=== PATIENT | female | born 1950 | race Caucasian/White ===

== ENCOUNTER → 2016-05-07 | Outpatient (CLI) | payer MEDICAID ==
--- NOTE | 2016-05-10 00:08 | FL ---
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 Episodes are becoming more frequent. Total fluoroscopy time: 2.3 minutes. TECHNIQUE AND FINDINGS: The risks and benefits of the procedure were discussed with the patient who gave verbal consent. Miguel lance sterile technique was utilized; the ostium for right Stensen's duct was located and after initia l probing and dilatation, a 27-gauge sialocatheter was introduced into the opening and the catheter w as secured by the patient's teeth. Retrograde instillation of a total of 2 mL Omnipaque 180 contrast material demonstrated a patent Sten sen's duct with opacification of the intraglandular branches. Stensen's duct itself is normal caliber but the distal aspect of some of the supplying branches are moderately dilated. No filling defect is identified. Patient was given some lemon to help stimulate salivation and a post image demonstrated residual cont rast within ectatic intraglandular ducts. Stensen's duct was clear. IMPRESSION: 1. Patent and normal caliber Stensen's duct. 2. The distal aspects of feeding intraglandular branches are ectatic and moderately to markedly dilat ed. 3. No filling defect identified. 4. Limited secretion of saliva with the post procedure image showing residual contrast throughout ect atic intraglandular ducts.
== END | disposition home or self-care (01) ==
LOC: RADFLWHC 13:32
PROVIDERS: ATTEND Otolaryngology
DX: K11.8 Other diseases of salivary glands (principal)
CPT/HCPCS: 70390; Q9965

== ENCOUNTER → 2016-05-12 | Outpatient (CLI) | payer MEDICAID ==
--- NOTE | 2016-05-14 08:13 | MM ---
Reason for exam: screening (asymptomatic). Last mammogram was performed 1 year and 2 months ago. History: Patient is postmenopausal. Family history of breast cancer in maternal cousin and breast cancer in mother. Benign ultrasound-guided core biopsy of the right breast, November 08, 2001. Benign ultrasound-guided core biopsy of the right breast, November 08, 2001. 2 core biopsies of the right breast. Excisional biopsy of the left breast. Physical Findings: A clinical breast exam by your physician is recommended on an annual basis and results should be correlated with mammographic findings. MG Screening Mammo w CAD Bilateral CC and MLO view(s) were taken. Prior study comparison: March 14, 2015, bilateral MG screening mammo w CAD. February 05, 2014, bilateral MG screening mammo w CAD. December 20, 2012, bilateral digital screening mammo w/CAD. The breast tissue is heterogeneously dense. This may lower the sensitivity of mammography. There is chronic nodularity in the right breast. No significant changes when compared with prior studies. ASSESSMENT: Negative, BI-RAD 1 RECOMMENDATION: Routine screening mammogram of both breasts in 1 year.
== END | disposition home or self-care (01) ==
LOC: RADMAMWWP 16:11
PROVIDERS: ATTEND Internal Medicine
DX: Z12.31 Encounter for screening mammogram for malignant neoplasm of breast (principal)

== ENCOUNTER → 2016-06-15 | Outpatient (CLI) | payer MEDICAID ==
--- NOTE | 2016-06-15 13:30 | MR ---
EXAMINATION TYPE: MR knee LT wo con DATE OF EXAM: 06/15/2016 1:20 PM COMPARISON: Left knee x-ray June 01, 2016 HISTORY: Left knee pain per order. Pain and swelling for 4 months per patient. TECHNIQUE: Multiplanar, multisequence images of the knee is performed without IV contrast. FINDINGS: MEDIAL MENISCUS: Some increased signal is seen in posterior horn of medial meniscus best on coronal i mage 17, does not distinctly extend to articular surface. Some medial extrusion of medial meniscus as noted on coronal images. LATERAL MENISCUS: Anterior and posterior horns are intact without tear. CRUCIATE LIGAMENTS: The anterior and posterior cruciate ligaments are intact. Increased signal anteri or cruciate ligament is noted. COLLATERAL LIGAMENTS: The medial collateral ligament and lateral collateral ligament complex are inta ct. Some medial bulging on medial collateral ligament is present. Some surrounding fluid involving de ep fibers inferiorly is noted at proximal tibial level. EXTENSOR MECHANISM: Visualized quadriceps and patellar tendons are intact. EFFUSION: There is small to moderate size suprapatellar joint effusion extending superiorly and later ally. POPLITEAL CYST: There is moderate size multiseptated popliteal/sales cyst measuring 5.1 cm on long ax is on sagittal image 23. TRICOMPARTMENT SPACES: Advanced joint space loss and moderate spurring patellofemoral compartment is seen. There is more moderate joint space loss medial tibiofemoral compartment. Mild spurring lateral medial tibiofemoral compartments is noted. CARTILAGE: There is full-thickness chondromalacia patella over the posterior patellar pole. Some joe ctive cystic change along posterior patellar pole is evident. There is marked cartilaginous loss also medial tibiofemoral compartment with full-thickness loss over distal medial femoral condyle noted. S ome heterogeneous edema involving the medial tibial plateau is seen best on coronal image 15. BONE MARROW SIGNAL: No focal abnormal marrow signal is appreciated. OTHER: No additional significant abnormality is appreciated. IMPRESSION: 1. Baseline of moderate to advanced tricompartment degenerative changes with advanced patellofemoral compartment findings noted including severe full-thickness chondromalacia patella. Moderate to advanc ed findings medial tibiofemoral compartment are noted. Further details as noted above. 2. Intrasubstance tear in medial meniscus centered posterior horn. 3. Myxoid degeneration ACL. 4. Mild distal MCL sprain injury. 5. Small to moderate suprapatellar joint effusion. 6. Moderate size multiseptated popliteal cyst.
== END | disposition home or self-care (01) ==
LOC: RADMRIMAIN 12:42
PROVIDERS: ATTEND Orthopaedic Surgery
DX: M17.12 Unilateral primary osteoarthritis, left knee (principal); M22.42 Chondromalacia patellae, left knee; S83.242A Other tear of medial meniscus, current injury, left knee, initial encounter; S83.512A Sprain of anterior cruciate ligament of left knee, initial encounter; M71.22 Synovial cyst of popliteal space [Baker], left knee

== ENCOUNTER → 2016-07-07 | Outpatient (CLI) | payer MEDICAID ==
[2016-07-07 10:48] LABS: Basophils % (A) 0 %; CH 26.3; CHCM 32.1; Eosinophils % (A) 0 %; HCT 37.5 % (34.0-46.0); HGB 12.3 gm/dL (11.4-16.0); Luc # (Auto) 0.12; Luc % (Auto) 3; Lymphocytes # (A) 1.2 k/uL (1.0-4.8); Lymphocytes % (A) 32 %; MCHC 32.7 g/dL (31.0-37.0); MCV 82.6 fL (80.0-100.0); Mean Platelet Volume 7.3; Monocytes # (A) 0.3 k/uL (0-1.0); Monocytes % (A) 7 %; Neutrophils # (A) 2.2 k/uL (1.3-7.7); Neutrophils % (A) 58 %; RBC 4.55 m/uL (3.80-5.40); RDW 13.5 % (11.5-15.5); WBC 3.8 k/uL (3.8-10.6)
== END | disposition home or self-care (01) ==
LOC: LABPAT 10:08
PROVIDERS: ATTEND Orthopaedic Surgery
DX: Z01.812 Encounter for preprocedural laboratory examination (principal)
CPT/HCPCS: 80051; 85025

== ENCOUNTER 2016-07-22 10:19 | Day surgery (SDC) | payer MEDICAID ==
[2016-07-20 14:11] VITALS: BMI 26.6
--- NOTE | 2016-07-21 16:43 | HP ---
DATE OF ADMISSION: 07/22/2016 Neva Zambrano is a 66-year-old patient seen with progressive left knee pain. After options regarding treatment were discussed with her, she elected to proceed with left knee arthroplasty. Consent was obtained. PAST MEDICAL HISTORY: Depression, hypertension. PAST SURGICAL HISTORY: Right knee arthroscopy. DAILY MEDICATIONS: 1. Amlodipine. 2. Advil. 3. Fenofibrate. ALLERGIES: ASPIRIN. SOCIAL HISTORY: Patient denies tobacco use. PHYSICAL EVALUATION OF LEFT KNEE: Range of motion is zero to 120 degrees. Mild effusion. Tenderness along the medial and lateral joint lines. Positive medial Garcia's. Positive lateral Garcia's. Ligaments are stable. Hip rotation without pain. There is crepitus along the patellofemoral compartment with range of motion. Distal neurovascular exam is intact. Left knee radiographs revealed moderate medial and patellofemoral compartment osteoarthritis. MRI of the left knee revealed medial meniscal tear and osteoarthritis. IMPRESSION: Internal derangement of the left knee with medial meniscal tear. PLAN: Left knee arthroscopy with partial meniscectomy and debridement.
[~2016-07-22 10:19] MED LIST: DEXAMETHASONE SOD PHOSPHATE 10 MG/ML 1 ML VIAL IV ONE; MIDAZOLAM 2 MG/2 ML VIAL IV PRN; ONDANSETRON 4 MG/2 ML VIAL IVP ONE; ceFAZolin 1,000 MG in DEXTROSE/WATER 1 50ML.BAG IV ONE
[2016-07-22] MEDS: LACTATED RINGERS 1,000 ML IV SCH ×2 (11:23→12:03)
[2016-07-22] MEDS ORDERED: LIDOCAINE 1% 20 ML VIAL (10MG/ML) FOR IV START INTRADERMA ONE (11:24)
[2016-07-22] MEDS ORDERED: SCOPOLAMINE 1.5MG/72HR PATCH TRANSDERM ONE (11:47)
[2016-07-22] MEDS ORDERED: SUCCINYLCHOLINE CHLORIDE 100 MG/5 ML SYR IV ONE (12:04)
[2016-07-22] MEDS ORDERED: LIDOCAINE 1% INJ 10MG/ML (20 ML MDV) ONE (12:04)
[2016-07-22] MEDS ORDERED: fentaNYL (PF) 50 MCG/ML 2 ML AMP ONE (12:04)
[2016-07-22] MEDS ORDERED: PROPOFOL 10 MG/ML 20 ML VIAL IV ONE (12:04)
[2016-07-22] MEDS ORDERED: BUPIVACAIN-EPI 0.25%-1:200,000 30 ML VIAL INTRAARTIC ONE (12:12)
[2016-07-22 13:00] VITALS: TEMP 97.2
--- NOTE | 2016-07-22 13:02 | P.OP ---
Date of Procedure: 07/22/16 Preoperative Diagnosis: Internal derangement left knee Postoperative Diagnosis: 1. Tear medial and lateral meniscus left knee 2. Grade 4 chondromalacia medial femoral condyle left knee 3. Grade 2 chondromalacia patella left knee 4. Reactive synovitis medial and suprapatellar compartments left knee Procedure(s) Performed: 1. Arthroscopic partial medial and lateral meniscectomy left knee 2. Arthroscopic chondroplasty medial femoral condyle left knee 3. Arthroscopic chondroplasty patella left knee 4. Arthroscopic partial synovectomy medial and suprapatellar compartments left knee Anesthesia: CAMDENA, local Surgeon: Noé Ruelas Estimated Blood Loss (ml): 10 Pathology: none sent Condition: stable Disposition: PACU Indications for Procedure: 66-year-old patient seen with progressive left knee pain. After having options regarding treatment discussed, she elected to proceed with left knee arthroscopy. Operative Findings: See description of procedure Description of Procedure: Patient was taken to the operative suite. Patient underwent a general anesthetic by the department of anesthesia. Patient was given preoperative antibiotics. The left lower extremity was placed in a well-padded arthroscopic leg wright. The left leg was prepped and draped in the normal sterile orthopedic fashion. A lateral parapatellar and suprapatellar incision was made. Trochars were inserted. Arthroscopy was initiated. Suprapatellar pouch revealed thick reactive synovitis. The patellofemoral joint appeared to articulate congruently. There was grade 2 chondromalacia with some osteochondral tears present. The scope was guided into the medial gutter. No loose body or plica were identified The scope was then guided into the medial compartment. A medial parapatellar incision was made. Trocar inserted followed by probe. There was a radial tear involving the posterior horn of the medial meniscus. There were grade 3 and 4 chondromalacia changes of the medial femoral condyle with some osteochondral tears present. Thick reactive synovitis was noted anteriorly. A partial medial meniscectomy was performed on a stable tissue. A chondroplasty of the medial femoral condyle and partial synovectomy were performed. The residual meniscus was probed and found to be stable. There was grade 4 chondromalacia of the medial femoral condyle with some bony exposure present. Scope and probe were then guided into the intercondylar notch. Cruciates were identified, probed and found to be stable. The scope and probe were then guided into lateral compartment. There was a radial tear mid body lateral meniscus. Grade 1 chondromalacia changes lateral tibial plateau. No loose bodies, no synovitis. A partial lateral meniscectomy performed down to stable tissue. The residual meniscus was stable. The scope was in guided back into the suprapatellar compartment. A motorized shaver was introduced into the suprapatellar compartment. I debrided some piecemeal fragments of meniscus. I performed a chondroplasty of the patella. I performed a partial synovectomy. The shaver was removed. I took one more look around the entire knee, no residual debris. Instruments were now removed from the joint. The joint was infiltrated with .25% Marcaine. Steri-Strips were applied to the portal sites. Sterile dressings were applied. The patient was placed into a TITO hose. No tourniquet was utilized. The patient was awakened, transferred to a bed and taken to recovery stable satisfactory condition.
[2016-07-22] MEDS ORDERED: KETOROLAC 30 MG/ML 1 ML VIAL IVP ONE (13:27)
[2016-07-22] MEDS: HYDROmorphone 1 MG/ML 1 ML SYRINGE IVP PRN ×2 (13:33→13:39)
[2016-07-22 15:01] VITALS: BP 127/74; PULSE 76; RESP 20
== END 2016-07-22 15:13 | disposition home or self-care (01) ==
LOC: OR 10:19
PROVIDERS: ATTEND Orthopaedic Surgery
DX: S83.282A Other tear of lateral meniscus, current injury, left knee, initial encounter (principal); S83.242A Other tear of medial meniscus, current injury, left knee, initial encounter; X58.XXXA Exposure to other specified factors, initial encounter; M17.12 Unilateral primary osteoarthritis, left knee; M22.42 Chondromalacia patellae, left knee; M65.9 Synovitis and tenosynovitis, unspecified; E78.2 Mixed hyperlipidemia; I10 Essential (primary) hypertension; Z79.1 Long term (current) use of non-steroidal anti-inflammatories (NSAID); Z79.899 Other long term (current) drug therapy; Z88.6 Allergy status to analgesic agent; Z82.49 Family history of ischemic heart disease and other diseases of the circulatory system
CPT/HCPCS: 29880; J2250; J1100; J2405; J2001; J3010; J1885; J1170; J0690; J0330; J2704

== ENCOUNTER → 2017-06-03 | Outpatient (CLI) | payer MEDICARE, OTHER ==
[2017-06-03 12:11] LABS: Basophils % (A) 0 %; Eosinophils % (A) 1 %; HCT 38.1 % (34.0-46.0); HGB 12.1 gm/dL (11.4-16.0); Lymphocytes # (A) 1.5 k/uL (1.0-4.8); Lymphocytes % (A) 35 %; MCH 26.8 pg (25.0-35.0); MCHC 31.7 g/dL (31.0-37.0); MCV 84.8 fL (80.0-100.0); Mean Platelet Volume 7.3; Monocytes # (A) 0.2 k/uL (0-1.0); Monocytes % (A) 5 %; Neutrophils # (A) 2.4 k/uL (1.3-7.7); Neutrophils % (A) 57 %; Platelet Count 217 k/uL (150-450); RDW 13.5 % (11.5-15.5); WBC 4.3 k/uL (3.8-10.6)
[2017-06-03 12:15] LABS: INR 1.1 (<1.2); Partial Thromboplastin Time 24.9 sec (22.0-30.0); Prothrombin Time 10.7 sec (9.0-12.0)
[2017-06-03 12:32] LABS: ALT 63 U/L (9-52); AST 46 U/L (14-36); Albumin 4.3 g/dL (3.5-5.0); Alkaline Phosphatase 70 U/L (38-126); Anion Gap 10 mmol/L; Blood Urea Nitrogen 21 mg/dL (7-17); Calcium 9.5 mg/dL (8.4-10.2); Carbon Dioxide 28 mmol/L (22-30); Chloride 105 mmol/L (98-107); Cholesterol 228 mg/dL (<200); Glucose 107 mg/dL (74-99); HDL Cholesterol 39 mg/dL (40-60); LDL Cholesterol,Calculated 163 mg/dL (0-99); Potassium 3.9 mmol/L (3.5-5.1); Sodium 143 mmol/L (137-145); Total Bilirubin 0.3 mg/dL (0.2-1.3); Total Protein 6.7 g/dL (6.3-8.2); Triglycerides 131 mg/dL (<150)
[2017-06-03 21:17] LABS: Cardiolipin Ab IgG Interp NEGATIVE (NEGATIVE); Cardiolipin IgA Antibody <0.5 U/mL; Immunoglobulin E 3.21 IU/mL (0.00-114.00)
[2017-06-03 21:21] LABS: Cardiolipin Ab IgM Interp NEGATIVE (NEGATIVE); Cardiolipin IgM Antibody 2.2 U/mL
[2017-06-06 11:51] LABS: APTT 43 Sec(s) (<43); Dilute Russell Viper Venom 41 Sec(s) (<44)
[2017-06-06 14:16] LABS: Anti-Thrombin III Antigen 102 % (80 - 120)
[2017-06-07 11:33] LABS: Protein C (Activity) 136 % (71-138)
[2017-06-07 11:57] LABS: Free Protein S Antigen 95 % (50 - 147)
== END | disposition home or self-care (01) ==
LOC: LABWHC1 11:33
PROVIDERS: ATTEND Internal Medicine
DX: D68.69 Other thrombophilia (principal); I63.9 Cerebral infarction, unspecified
CPT/HCPCS: 36415; 80053; 80061; 81240; 81241; 82784; 82785; 83090; 85025; 85301; 85303; 85306; 85610; 85613; 85730; 86141; 86147

== ENCOUNTER 2017-06-22 07:58 | Day surgery (SDC) | payer MEDICARE, OTHER ==
[2017-06-21 08:41] VITALS: BMI 26.4
[2017-06-22] MEDS ORDERED: SODIUM CHLORIDE 0.9% 500 ML IV ONE (08:18)
[2017-06-22 08:21] VITALS: TEMP 98.1
[2017-06-22] MEDS ORDERED: fentaNYL (PF) 50 MCG/ML 2 ML AMP ONE (08:38)
[2017-06-22] MEDS ORDERED: MIDAZOLAM 2 MG/2 ML VIAL ONE (08:39)
[2017-06-22] MEDS: BENZOCAINE SPRAY 1 CAN MUCOUS MEM ONE ×2 (08:55→09:07)
[2017-06-22] MEDS ORDERED: fentaNYL (PF) 50 MCG/ML 2 ML AMP IVP ONE (09:02)
[2017-06-22] MEDS: MIDAZOLAM 2 MG/2 ML VIAL IVP ONE ×2 (09:02→09:07)
[2017-06-22] MEDS ORDERED: SODIUM CHLORIDE 0.9% 1,000 ML IV SCH (09:30)
--- NOTE | 2017-06-22 09:44 | ECHOT ---
TRANSESOPHAGEAL ECHOCARDIOGRAM INDICATION: Cerebrovascular accident. PROCEDURE NOTE: After obtaining informed consent, transesophageal echocardiogram was performed in left lateral position using an Omniplane probe. Local and IV sedation were done using Xylocaine spray, 2 mg of Versed and 25 mg of fentanyl. The patient tolerated the procedure well without any obvious immediate complications. Patient received moderate conscious sedation. Total sedation time was 15 minutes. FINDINGS: 1. There was no intracardiac thrombus within the left atrium, right atrium, right ventricle, left ventricle or left atrial appendage. 2. Left ventricle has normal size and systolic function. 3. Mitral valve is anatomically normal. There is mild mitral regurgitation noted. 4. Aortic valve is free of stenosis or regurgitation. 5. Tricuspid valve appears normal. 6. There is no evidence of [id number] shunt by color-flow Doppler or [id number]-ns-[id number] shunt across the interatrial septum. 7. Aorta does not show aneurysm or significant atherosclerosis. CONCLUSION: No intracardiac source of thromboembolic cerebrovascular accident. MMODL / IJN: [id number] /
[2017-06-22 09:50] VITALS: RESP 16
[2017-06-22 10:07] VITALS: PULSE 76
[2017-06-22 11:07] VITALS: BP 142/72
== END 2017-06-22 11:07 | disposition home or self-care (01) ==
LOC: CATHCVL 07:58
PROVIDERS: ATTEND Internal Medicine Cardiovascular Disease
DX: I63.9 Cerebral infarction, unspecified (principal); I34.0 Nonrheumatic mitral (valve) insufficiency; I10 Essential (primary) hypertension; G45.8 Other transient cerebral ischemic attacks and related syndromes; E78.2 Mixed hyperlipidemia; Z88.6 Allergy status to analgesic agent; Z88.8 Allergy status to other drugs, medicaments and biological substances; Z87.891 Personal history of nicotine dependence; Z82.49 Family history of ischemic heart disease and other diseases of the circulatory system; Z79.02 Long term (current) use of antithrombotics/antiplatelets; Z79.82 Long term (current) use of aspirin; Z79.899 Other long term (current) drug therapy
CPT/HCPCS: 93312; J2250; J3010; 93320; 93325

== ENCOUNTER → 2017-09-02 | Outpatient (CLI) | payer MEDICARE, OTHER ==
[2017-09-02 07:43] LABS: ALT 46 U/L (9-52); AST 30 U/L (14-36); Cholesterol 124 mg/dL (<200); HDL Cholesterol 37 mg/dL (40-60); LDL Cholesterol,Calculated 52 mg/dL (0-99); Triglycerides 173 mg/dL (<150)
== END | disposition home or self-care (01) ==
LOC: LABWHC1 06:55
PROVIDERS: ATTEND Internal Medicine
DX: E78.5 Hyperlipidemia, unspecified (principal)
CPT/HCPCS: 36415; 80061; 84450; 84460

== ENCOUNTER 2017-11-26 07:57 | Emergency (ER) | payer MEDICARE, OTHER ==
[2017-11-26] MEDS ORDERED: SODIUM CHLORIDE 0.9% 1,000 ML IV STA ×2 (08:01)
[2017-11-26 08:37] LABS: Basophils % (A) 0 %; Eosinophils # (A) 0.1 k/uL (0-0.7); Eosinophils % (A) 2 %; HCT 38.2 % (34.0-46.0); HGB 12.6 gm/dL (11.4-16.0); Lymphocytes # (A) 1.4 k/uL (1.0-4.8); Lymphocytes % (A) 29 %; MCH 26.2 pg (25.0-35.0); MCV 79.5 fL (80.0-100.0); Mean Platelet Volume 7.2; Monocytes # (A) 0.3 k/uL (0-1.0); Monocytes % (A) 5 %; Neutrophils % (A) 62 %; Platelet Count 225 k/uL (150-450); RBC 4.81 m/uL (3.80-5.40); RDW 13.9 % (11.5-15.5); WBC 4.9 k/uL (3.8-10.6)
[2017-11-26 08:43] LABS: ALT 48 U/L (9-52); AST 35 U/L (14-36); Albumin 3.9 g/dL (3.5-5.0); Alkaline Phosphatase 95 U/L (38-126); Anion Gap 9 mmol/L; Blood Urea Nitrogen 22 mg/dL (7-17); Carbon Dioxide 24 mmol/L (22-30); Chloride 109 mmol/L (98-107); Glucose 148 mg/dL (74-99); Magnesium 2.1 mg/dL (1.6-2.3); Phosphorus 2.4 mg/dL (2.5-4.5); Potassium 3.6 mmol/L (3.5-5.1); Sodium 142 mmol/L (137-145); Total Bilirubin 0.4 mg/dL (0.2-1.3); Total Protein 6.4 g/dL (6.3-8.2)
[2017-11-26 08:48] LABS: INR 1.1 (<1.2); Partial Thromboplastin Time 22.4 sec (22.0-30.0); Prothrombin Time 10.8 sec (9.0-12.0)
[2017-11-26 09:02] LABS: Creatine Kinase 221 U/L (30-135)
[2017-11-26 09:16] LABS: Troponin I <0.012 ng/mL (0.000-0.034)
[2017-11-26 09:20] VITALS: RESP 18
--- NOTE | 2017-11-26 09:29 | CT ---
EXAMINATION TYPE: CT brain kaylahine ismael con DATE OF EXAM: 11/26/2017 COMPARISON: Previous study dated 03/01/2017 HISTORY: Sncope/fall CT DLP: 1724.8 mGycm Automated exposure control for dose reduction was used. TECHNIQUE: CT scan of the head and cervical spine are performed without contrast. FINDINGS: BRAIN: There is a left frontal scalp hematoma. There is been interval development of a lacunar infarct in the hernandez radiata on the left. This is no t acute but was not present on the previous study. Central structures are otherwise mid line. There is no evidence of hydrocephalus. No acute focal lesi on, mass effect or midline shift is seen. I do not see evidence of intracranial blood. Visualized portions of the paranasal sinuses and mastoids are clear. The bony calvarium is intact.. IMPRESSION: 1. NO ACUTE INTRACRANIAL ABNORMALITY. 2. LEFT FRONTAL SCALP HEMATOMA. 3. 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 CERVICAL SPINE: Visualized portions of the lungs are clear. Prevertebral soft tissues are normal. There is a mild antegrade listhesis of C4 on C5. Alignment is otherwise maintained. Atlantoaxial rela tionships are normal. There is diffuse degenerative disc disease and hypertrophic spondylosis with relative sparing of C2-3 . There is diffuse uncovertebral joint disease. There is facet arthropathy most marked on the right a t C4-5. No protrusion is seen. No fracture is identified. IMPRESSION: 1. NO ACUTE OSSEOUS LESION. 2. MODERATE DEGENERATIVE CHANGE.
--- NOTE | 2017-11-26 09:51 | ED ---
General Adult HPI - General Chief complaint: Syncope Stated complaint: Syncope Time Seen by Provider: 11/26/17 08:01 Source: patient, RN notes reviewed, old records reviewed Mode of arrival: EMS Limitations: no limitations - History of Present Illness Initial comments: This is a 67-year-old female the ER for evaluation regarding syncopal event. Patient syncopal event did hit her head. No medical history takes no medications. Patient's currently asymptomatic no headache no chest pain or shortness of breath no abdominal pain. No recent change in medications. - Related Data Home Medications Medication Instructions Recorded Confirmed Cholecalciferol [Vitamin D3] 1,000 unit PO DAILY 07/20/16 06/22/17 Venlafaxine HCl [Effexor XR] 150 mg PO DAILY 07/20/16 06/22/17 amLODIPine BESYLATE [Norvasc] 5 mg PO DAILY 07/20/16 06/22/17 Alirocumab [Praluent Pen] 75 mg SQ Q14D 06/21/17 06/22/17 Clopidogrel [Plavix] 75 mg PO DAILY 06/21/17 06/22/17 Previous Rx's Medication Instructions Recorded Aspirin 81 mg PO DAILY chew 03/02/17 Allergies Allergy/AdvReac Type Severity Reaction Status Date / Time atorvastatin [From Lipitor] Allergy RASH,MUSCLE Verified 06/21/17 08:22 PAIN Review of Systems ROS Statement: Those systems with pertinent positive or pertinent negative responses have been documented in the HPI. ROS Other: All systems not noted in ROS Statement are negative. Past Medical History Past Medical History: Hyperlipidemia, Hypertension, Osteoarthritis (OA) Additional Past Medical History / Comment(s): occ stress incont of urine/ urgency, ibs. History of Any Multi-Drug Resistant Organisms: None Reported Past Surgical History: Appendectomy, Orthopedic Surgery, Tonsillectomy Additional Past Surgical History / Comment(s): hunter knee arthoscopy, lt knee meniscus repiar, hunter carpal tunnel Past Anesthesia/Blood Transfusion Reactions: Previous Problems w/ Anesthesia Additional Past Anesthesia/Blood Transfusion Reaction / Comment(s): "hard time waking up ", clausterphobia Past Psychological History: Depression Smoking Status: Former smoker Past Alcohol Use History: Occasional Past Drug Use History: None Reported - Past Family History Mother Family Medical History: Cancer Brother(s) Family Medical History: Cancer Father Family Medical History: Hyperlipidemia, Myocardial Infarction (MS) Additional Family Medical History / Comment(s): smoker General Exam Limitations: no limitations General appearance: alert, in no apparent distress Head exam: Present: atraumatic, normocephalic, normal inspection Eye exam: Present: normal appearance, PERRL, EOMI. Absent: scleral icterus, conjunctival injection, periorbital swelling ENT exam: Present: normal exam, mucous membranes moist Neck exam: Present: normal inspection. Absent: tenderness, meningismus, lymphadenopathy Respiratory exam: Present: normal lung sounds bilaterally. Absent: respiratory distress, wheezes, rales, rhonchi, stridor Cardiovascular Exam: Present: regular rate, normal rhythm, normal heart sounds. Absent: systolic murmur, diastolic murmur, rubs, gallop, clicks GI/Abdominal exam: Present: soft, normal bowel sounds. Absent: distended, tenderness, guarding, rebound, rigid Extremities exam: Present: normal inspection, full ROM, normal capillary refill. Absent: tenderness, pedal edema, joint swelling, calf tenderness Back exam: Present: normal inspection Neurological exam: Present: alert, oriented X3, CN II-XII intact Psychiatric exam: Present: normal affect, normal mood Skin exam: Present: warm, dry, intact, normal color. Absent: rash Course Vital Signs 11/26/17 11/26/17 11/26/17 08:04 08:55 09:19 Temperature Pulse Rate 72 74 Pulse Rate [ 77 Flat [place]othier ] Respiratory 22 18 Rate Blood Pressure 116/57 124/63 O2 Sat by Pulse 100 100 Oximetry 11/26/17 11/26/17 10:17 10:59 Temperature 97.6 F Pulse Rate 73 69 Pulse Rate [ Flat [place] ] Respiratory 18 18 Rate Blood Pressure 132/66 138/78 O2 Sat by Pulse 97 100 Oximetry - Reevaluation(s) Reevaluation #1: Patient asymptomatic, able to ambulate without syncope EKG Findings - EKG Comments: EKG Findings:: EKG shows sinus rhythm rate of 63, WA 194, QRS 94, QTC 458 Medical Decision Making - Medical Decision Making 67 female with vasovagal syncopal event. No injury noted. Patient can be discharged home - Lab Data Result diagrams: 11/26/17 08:19 11/26/17 08:19 Lab Results 08/18/18 08/18/18 08/18/18 Range/Units 08:19 08:19 08:19 WBC 4.9 (3.8-10.6) k/uL RBC 4.81 (3.80-5.40) m/uL Hgb 12.6 (11.4-16.0) gm/dL Hct 38.2 (34.0-46.0) % MCV 79.5 L (80.0-100.0) fL MCH 26.2 (25.0-35.0) pg MCHC 33.0 (31.0-37.0) g/dL RDW 13.9 (11.5-15.5) % Plt Count 225 (150-450) k/uL Neutrophils % 62 % Lymphocytes % 29 % Monocytes % 5 % Eosinophils % 2 % Basophils % 0 % Neutrophils # 3.0 (1.3-7.7) k/uL Lymphocytes # 1.4 (1.0-4.8) k/uL Monocytes # 0.3 (0-1.0) k/uL Eosinophils # 0.1 (0-0.7) k/uL Basophils # 0.0 (0-0.2) k/uL PT (9.0-12.0) sec INR (<1.2) APTT (22.0-30.0) sec D-Dimer (<0.60) mg/L FEU Sodium 142 (137-145) mmol/L Potassium 3.6 (3.5-5.1) mmol/L Chloride 109 H (98-107) mmol/L Carbon Dioxide 24 (22-30) mmol/L Anion Gap 9 mmol/L BUN 22 H (7-17) mg/dL Creatinine 0.69 (0.52-1.04) mg/dL Est GFR (CKD-EPI)AfAm >90 (>60 ml/min/1.73 sqM) Est GFR (CKD-EPI)NonAf >90 (>60 ml/min/1.73 sqM) Glucose 148 H (74-99) mg/dL Calcium 9.0 (8.4-10.2) mg/dL Phosphorus 2.4 L (2.5-4.5) mg/dL Magnesium 2.1 (1.6-2.3) mg/dL Total Bilirubin 0.4 (0.2-1.3) mg/dL AST 35 (14-36) U/L ALT 48 (9-52) U/L Alkaline Phosphatase 95 (38-126) U/L Total Creatine Kinase 221 H (30-135) U/L CK-MB (CK-2) 2.0 (0.0-2.4) ng/mL CK-MB (CK-2) Rel Index 0.9 Troponin I <0.012 (0.000-0.034) ng/mL Total Protein 6.4 (6.3-8.2) g/dL Albumin 3.9 (3.5-5.0) g/dL Urine Color Urine Appearance (Clear) Urine pH (5.0-8.0) Ur Specific Dozier (1.001-1.035) Urine Protein (Negative) Urine Glucose (UA) (Negative) Urine Ketones (Negative) Urine Blood (Negative) Urine Nitrite (Negative) Urine Bilirubin (Negative) Urine Urobilinogen (<2.0) mg/dL Ur Leukocyte Esterase (Negative) Urine RBC (0-5) /hpf Urine WBC (0-5) /hpf 11/26/17 11/26/17 11/26/17 Range/Units 08:19 08:19 09:37 WBC (3.8-10.6) k/uL RBC (3.80-5.40) m/uL Hgb (11.4-16.0) gm/dL Hct (34.0-46.0) % MCV (80.0-100.0) fL MCH (25.0-35.0) pg MCHC (31.0-37.0) g/dL RDW (11.5-15.5) % Plt Count (150-450) k/uL Neutrophils % % Lymphocytes % % Monocytes % % Eosinophils % % Basophils % % Neutrophils # (1.3-7.7) k/uL Lymphocytes # (1.0-4.8) k/uL Monocytes # (0-1.0) k/uL Eosinophils # (0-0.7) k/uL Basophils # (0-0.2) k/uL PT 10.8 (9.0-12.0) sec INR 1.1 (<1.2) APTT 22.4 (22.0-30.0) sec D-Dimer 0.44 (<0.60) mg/L FEU Sodium (137-145) mmol/L Potassium (3.5-5.1) mmol/L Chloride (98-107) mmol/L Carbon Dioxide (22-30) mmol/L Anion Gap mmol/L BUN (7-17) mg/dL Creatinine (0.52-1.04) mg/dL Est GFR (CKD-EPI)AfAm (>60 ml/min/1.73 sqM) Est GFR (CKD-EPI)NonAf (>60 ml/min/1.73 sqM) Glucose (74-99) mg/dL Calcium (8.4-10.2) mg/dL Phosphorus (2.5-4.5) mg/dL Magnesium (1.6-2.3) mg/dL Total Bilirubin (0.2-1.3) mg/dL AST (14-36) U/L ALT (9-52) U/L Alkaline Phosphatase (38-126) U/L Total Creatine Kinase (30-135) U/L CK-MB (CK-2) (0.0-2.4) ng/mL CK-MB (CK-2) Rel Index Troponin I (0.000-0.034) ng/mL Total Protein (6.3-8.2) g/dL Albumin (3.5-5.0) g/dL Urine Color Colorless Urine Appearance Clear (Clear) Urine pH 8.0 (5.0-8.0) Ur Specific Dozier 1.009 (1.001-1.035) Urine Protein Negative (Negative) Urine Glucose (UA) Negative (Negative) Urine Ketones Negative (Negative) Urine Blood Negative (Negative) Urine Nitrite Negative (Negative) Urine Bilirubin Negative (Negative) Urine Urobilinogen <2.0 (<2.0) mg/dL Ur Leukocyte Esterase Trace H (Negative) Urine RBC <1 (0-5) /hpf Urine WBC 4 (0-5) /hpf - Radiology Data Radiology results: report reviewed (CT brain C-spine negative), image reviewed Disposition Clinical Impression: Vasovagal syncope, Head injury Disposition: HOME SELF-CARE Condition: Good Instructions: Syncope (ED), Head Injury (ED) Is patient prescribed a controlled substance at d/c from ED?: No Referrals: Aris Ag MD [Primary Care Provider] - 1-2 days
[2017-11-26 10:10] LABS: Appearance,Urine Clear (Clear); Bilirubin,Urine Negative (Negative); Blood,Urine Negative (Negative); Color,Urine Colorless; Glucose,Urine (UA) Negative (Negative); Ketones,Urine Negative (Negative); Leukocyte Esterase,Urine Trace (Negative); Nitrite,Urine Negative (Negative); Protein,Urine Negative (Negative); RBC,Urine <1 /hpf (0-5); Specific Gravity,Urine 1.009 (1.001-1.035); Urobilinogen,Urine <2.0 mg/dL (<2.0); WBC,Urine 4 /hpf (0-5)
[2017-11-26] MEDS ORDERED: ACETAMINOPHEN TAB 500 MG TAB PO STA (10:20)
[2017-11-26 11:03] VITALS: BP 138/78; PULSE 69; TEMP 97.6
== END 2017-11-26 10:59 | disposition home or self-care (01) ==
LOC: EC 07:57
DX: S09.90XA Unspecified injury of head, initial encounter (principal); R55 Syncope and collapse; E78.5 Hyperlipidemia, unspecified; I10 Essential (primary) hypertension; F32.9 Major depressive disorder, single episode, unspecified; Z87.891 Personal history of nicotine dependence; Z88.8 Allergy status to other drugs, medicaments and biological substances; Z79.02 Long term (current) use of antithrombotics/antiplatelets; Z79.899 Other long term (current) drug therapy; W22.8XXA Striking against or struck by other objects, initial encounter; Y93.89 Activity, other specified; Y92.002 Bathroom of unspecified non-institutional (private) residence as the place of occurrence of the external cause
CPT/HCPCS: 36415; 70450; 72125; 80053; 81001; 82550; 82553; 83735; 84100; 84484; 85025; 85379; 85610; 85730; 87077; 87086; 87186; 93005; 96360; 96361; 99285

== ENCOUNTER → 2018-01-06 | Outpatient (CLI) | payer MEDICARE, OTHER ==
--- NOTE | 2018-01-06 08:57 | CT ---
EXAMINATION TYPE: CT brain wo con DATE OF EXAM: 01/06/2018 COMPARISON: November 26, 2017 HISTORY: Fall 6 weeks ago fell face first on cement and LOC. Drooping, swelling Lt eye CT DLP: 945.[address] of the brain was performed. The ventricles, basal cisterns and sulci overlying the cerebral convexities demonstrate mild enlargem ent. There is no evidence for intracranial hemorrhage or sulcal effacement. There is decreased attenuation about the periventricular white matter and deep white matter of both c erebral hemispheres, compatible with chronic small vessel ischemia. Differential diagnosis does inclu de demyelination. No mass effects are seen.No midline shift. Osseous calvarium is intact. Left supraorbital soft tissue swelling is improved from prior study. If symptoms persist consider MRI. IMPRESSION: 1. Age related atrophic and chronic small vessel ischemic change without acute intracranial process s een at this time.
== END | disposition home or self-care (01) ==
LOC: RADCTMAIN 08:21
PROVIDERS: ATTEND Internal Medicine
DX: I67.82 Cerebral ischemia (principal); G31.1 Senile degeneration of brain, not elsewhere classified
CPT/HCPCS: 70450

== ENCOUNTER → 2018-03-03 | Outpatient (CLI) | payer MEDICARE, OTHER ==
--- NOTE | 2018-03-07 09:34 | MM ---
Reason for exam: screening (asymptomatic). Last mammogram was performed 1 year and 10 months ago. History: Patient is postmenopausal. Family history of breast cancer in maternal cousin and breast cancer in mother. Benign ultrasound-guided core biopsy of the right breast, November 08, 2001. Benign ultrasound-guided core biopsy of the right breast, November 08, 2001. 2 core biopsies of the right breast. Excisional biopsy of the left breast. Physical Findings: A clinical breast exam by your physician is recommended on an annual basis and results should be correlated with mammographic findings. MG 3D Screening Mammo W/Cad Bilateral CC and MLO view(s) were taken. Prior study comparison: May 12, 2016, bilateral MG screening mammo w CAD. March 14, 2015, bilateral MG screening mammo w CAD. There are scattered fibroglandular densities. There is chronic nodularity in the right breast. No significant changes when compared with prior studies. ASSESSMENT: Benign, BI-RAD 2 RECOMMENDATION: Routine screening mammogram of both breasts in 1 year.
== END ==
LOC: RADMAMWWP 12:33
PROVIDERS: ATTEND Internal Medicine
DX: Z12.31 Encounter for screening mammogram for malignant neoplasm of breast (principal)
CPT/HCPCS: 77063; 77067

== ENCOUNTER → 2018-07-05 | Outpatient (CLI) | payer MEDICARE, OTHER ==
[2018-07-05 11:47] LABS: Basophils % (A) 1 %; Eosinophils # (A) 0.2 k/uL (0-0.7); Eosinophils % (A) 3 %; HCT 41.7 % (34.0-46.0); HGB 13.8 gm/dL (11.4-16.0); Lymphocytes # (A) 1.6 k/uL (1.0-4.8); Lymphocytes % (A) 33 %; MCH 27.3 pg (25.0-35.0); MCHC 32.9 g/dL (31.0-37.0); MCV 82.8 fL (80.0-100.0); Monocytes # (A) 0.2 k/uL (0-1.0); Monocytes % (A) 5 %; Neutrophils # (A) 2.7 k/uL (1.3-7.7); Neutrophils % (A) 55 %; Platelet Count 243 k/uL (150-450); RBC 5.04 m/uL (3.80-5.40); RDW 14.5 % (11.5-15.5); WBC 4.8 k/uL (3.8-10.6)
[2018-07-05 12:05] LABS: Potassium 4.1 mmol/L (3.5-5.1)
== END | disposition home or self-care (01) ==
LOC: LABPAT 11:11
PROVIDERS: ATTEND Orthopaedic Surgery
DX: Z01.812 Encounter for preprocedural laboratory examination (principal); M17.12 Unilateral primary osteoarthritis, left knee; Z79.01 Long term (current) use of anticoagulants
CPT/HCPCS: 36415; 80051; 85025; 85610; 87070

== ENCOUNTER 2018-07-17 07:16 | Inpatient (IN) | payer MEDICARE, OTHER ==
[2018-07-05 10:28] VITALS: BMI 25.7
--- NOTE | 2018-07-16 13:12 | HP ---
HISTORY AND PHYSICAL REASON FOR ADMISSION: Surgery scheduled for 07/17/2018 Neva Zambrano is a 68-year-old patient seen with progressive left knee pain. Treatment options were discussed with her. She elected to proceed with total knee arthroplasty. Consent regarding the procedure was obtained. Medical clearance was provided by Dr. Aris Ag. PAST MEDICAL HISTORY: Depression, hypertension. PAST SURGICAL HISTORY: Right knee arthroscopy. MEDICATIONS: Amlodipine, fenofibrate, Effexor, Advil. ALLERGIES: ASPIRIN. SOCIAL HISTORY: She denies current tobacco use. PHYSICAL EXAMINATION: Evaluation of the left knee range of motion is -1/2 to 125 degrees. She has a mild effusion present. She is tender along the medial and lateral joint lines. There is crepitus along the medial patellofemoral compartments range of motion. There is pain with patellofemoral compression. Her ligaments are stable. Hip rotation is without pain. Her distal neurovascular exam is intact. RADIOGRAPHS: Radiographs of the left knee revealed severe medial and moderate to severe patellofemoral compartment osteoarthritis. IMPRESSION: 1. Left knee osteoarthritis. 2. Hypertension. 3. Depression. 4. History of cerebrovascular accident. PLAN: Left total knee arthroplasty. Surgery scheduled 07/17/2018. MMODL / IJN: [id number] /
[~2018-07-17 07:16] MED LIST changes: +ACETAMINOPHEN TAB 500 MG TAB PO ONE; +HYDROmorphone 0.5 MG/0.5 ML SYRINGE IVP PRN; +LACTATED RINGERS 1,000 ML IV SCH; +MELOXICAM 7.5 MG TAB PO ONE; +MIDAZOLAM (PF) 2 MG/2 ML VIAL IV PRN; -MIDAZOLAM 2 MG/2 ML VIAL IV PRN; +TRANEXAMIC ACID 1,000 MG in SODIUM CHLORIDE 0.9% 100 ML IVPB ONE; -ceFAZolin 1,000 MG in DEXTROSE/WATER 1 50ML.BAG IV ONE; +ceFAZolin IN SWFI 2 GM/20 ML SYRINGE IVP ONE
[2018-07-17] MEDS ORDERED: LIDOCAINE 1% 20 ML VIAL (10MG/ML) FOR IV START INTRADERMA ONE (07:45)
[2018-07-17] MEDS ORDERED: ROPIVACAINE 246.25 MG, EPINEPHrine 0.5 MG, KETOROLAC 30 MG, cloNIDine HCL/PF 80 MCG, WA... MISCELLANE ONE ×5 (07:48)
[2018-07-17] MEDS ORDERED: fentaNYL (PF) 50 MCG/ML 2 ML AMP IVP ONE (08:02)
[2018-07-17] MEDS ORDERED: MIDAZOLAM 2 MG/2 ML VIAL IVP ONE (08:02)
[2018-07-17] MEDS ORDERED: SODIUM CHLORIDE 0.9% 100 ML BAG ONE (08:16)
[2018-07-17] MEDS ORDERED: PROPOFOL 10 MG/ML 20 ML VIAL IV ONE (08:16)
[2018-07-17] MEDS ORDERED: MIDAZOLAM 2 MG/2 ML VIAL ONE (08:16)
[2018-07-17] MEDS ORDERED: fentaNYL (PF) 50 MCG/ML 2 ML AMP ONE (08:16)
[2018-07-17] MEDS ORDERED: TRANEXAMIC ACID 1,000 MG/10 ML VIAL ONE (08:16)
[2018-07-17] MEDS ORDERED: ceFAZolin 3,000 MG in SODIUM CHLORIDE 0.9% IRRIGATIO 3,000 ML IRRIGATION ONE (08:55)
[2018-07-17] MEDS ORDERED: NALOXONE 0.4 MG/ML 1 ML VIAL IV PRN (09:19)
[2018-07-17] MEDS ORDERED: traMADol 50 MG TAB PO PRN (09:19)
[2018-07-17] MEDS ORDERED: HYDROmorphone 0.5 MG/0.5 ML SYRINGE IVP PRN (09:19)
[2018-07-17] MEDS ORDERED: MAGNESIUM HYDROXIDE 2,400 MG/10 ML CUP PO PRN (09:19)
[2018-07-17] MEDS ORDERED: ACETAMINOPHEN TAB 325 MG TAB PO PRN (09:19)
[2018-07-17] MEDS ORDERED: HYDROmorphone 1 MG/ML 1 ML SYRINGE IVP PRN (09:19)
[2018-07-17] MEDS ORDERED: HYDROcodone/APAP 7.5-325MG 1 EACH TAB PO PRN (09:19)
[2018-07-17] MEDS ORDERED: ONDANSETRON 4 MG/2 ML VIAL IVP PRN (09:19)
--- NOTE | 2018-07-17 09:48 | P.ONQ ---
Anesthesiology Proc Note - PNB - Peripheral Nerve Block Performed Left Adductor Canal Infusion Time Out Performed: Yes (801) Procedure Start Time: 08:02 Procedure Stop Time: 08:12 Indication: Acute Post-Operative Pain, Dx/Pain Location (Knee Pain), Requested by physician Sedation Type: Sedate with meaningful contact maintained Preparation: Sterile Prep Needle Types: Touhy Needle Size: 100mm (4") Needle Gauge: 21 Technique: Ultrasound Injectate: 0.5% Ropivacaine (see comment for volume) (20ml) Blood Aspirated: No Pain Paresthesia on Injection Noted: No Resistance on Injection: Normal Events: Uneventful and Well Tolerated
[2018-07-17] MEDS ORDERED: LACTATED RINGERS 1,000 ML IV ONE (10:12)
[2018-07-17] MEDS ORDERED: ROPIVACAINE 1,100 MG, SODIUM CHLORIDE 0.9% 500 ML 330 ML MISCELLANE PRN ×2 (10:16)
--- NOTE | 2018-07-17 10:26 | P.OP ---
Date of Procedure: 07/17/18 Preoperative Diagnosis: Left knee osteoarthritis Postoperative Diagnosis: Left knee osteoarthritis Procedure(s) Performed: Left total knee arthroplasty Implants: 1. Microport evolution size 3 left cruciate retaining cemented femur 2. Microport evolution size 3 left cemented tibial baseplate 3. Microport evolution size 3 MP 12 mm polyethylene tibial insert 4. Microport advance all polyethylene 32 mm cemented patella Anesthesia: regional (Adductor canal catheter), local, spinal Surgeon: Noé Ruelas Estimated Blood Loss (ml): 25 Pathology: other (Bone) Condition: stable Disposition: PACU Indications for Procedure: 68-year-old patient seen with symptomatic left knee osteoarthritis. After having treatment options discussed, she elected to proceed with total knee arthroplasty. Operative Findings: See description of procedure Description of Procedure: Patient was taken to the operative suite after having an adductor canal catheter placed by the department of anesthesia for postoperative pain management. Patient underwent a spinal anesthetic by the department of anesthesia. Patient was given preoperative IV antibiotics and TXA. A well-padded tourniquet was placed about the left lower extremity. The lower extremity was then prepped and draped in the normal sterile orthopedic fashion. The extremity was elevated, a tourniquet was insufflated to 300. A standard anterior incision was made sharply through skin. Dissection was taken down through the subcutaneous soft tissues down to the extensor mechanism. A medial arthrotomy was performed, patella was everted and knee was flexed. There was advanced osteoarthritis noted. I introduced my distal intramedullary femoral drill. I then introduced the distal femoral cutting jig. My resident care assistant secured the cutting jig with 2 pins. I held retractors in position while my resident care assistant performed the distal femoral resection through the guide area we now removed her distal femoral cutting guide. We now placed our 4-in-1 femoral cutting block and positioned and it was secured with 2 pins by my resident care assistant while I held the block in position. The distal femoral finishing was now completed. A proximal tibial cutting guide was positioned. I held the guide in the appropriate position with both hands while my resident care assistant inserted stabilizing pins into the guide. Proximal tibial cut was made. We now placed a trial femoral component into position, along with an appropriate size tibial tray and insert. We now took the knee through range of motion and had full extension good flexion and good overall soft tissue balance noted. The patella was everted and stabilized with 2 towel clips held by my resident care assistant while I performed a flush with patellar quad tendon utilizing a fresh sawblade. We templated the patella, appropriate drill holes were made. An appropriate trial patella was positioned, knee was taken through full range of motion with the patella tracking very nicely. The trial patella was removed. Drill holes were made through the femoral component. All trial components were removed after marking off the appropriate rotation of the tibia. Retractors were now positioned along the proximal tibia. An appropriate keel punch was made with the appropriate size tibial guide by myself on my resident care assistant assisted by holding retractors. At this point appropriate size implants were chosen and opened. The joint was irrigated copiously with pulse lavage mechanical irrigation. The posterior capsule was infiltrated with local analgesic. The wound was irrigated with pulse lavage mechanical irrigation. We mixed antibiotic methylmethacrylate. We placed the knee into flexion. We placed multiple retractors assisted by Sherman SHEFFIELD to expose the proximal tibia. Once the methyl methacrylate was ready, the tibial component was cemented into place removing any excess methylmethacrylate form by both myself and my resident care assistant. The femoral component was cemented into place removing the removing any excess methylmethacrylate performed by both myself and my resident care assistant. We then inserted the appropriate size polyethylene tibial insert. We made sure that it was locked into position. We took the knee into full extension, and then back in a flexion making sure we had removed any excess methylmethacrylate. The patellar component was then cemented down and secured with clamp. Excess methylmethacrylate removed. We kept the knee in full extension, patellar clamp in position until methylmethacrylate had hardened. Once it had hardened the patellar clamp was removed. The knee was taken through full range of motion. The patella tracked nicely. There was good soft tissue balancing. The tourniquet was now released. Additional hemostasis was achieved via electrocautery. A second gram of TXA was given. The wound again was irrigated with pulse lavage mechanical irrigation. The superficial soft tissues were infiltrated local analgesic. The extensor mechanism was repaired with Vicryl. We checked the repair with range of motion and it was stable. The subcutaneous soft tissues were repaired with Vicryl in layers. The skin was approximated with pernio/Dermabond. Sterile dressings were applied followed by loose web roll and Toi bandage. The patient was transferred to a bed, and taken to recovery in stable and satisfactory condition.
--- NOTE | 2018-07-17 11:00 | XR ---
Limited left knee HISTORY: Postop 2 views of the left knee Patient is status post left knee arthroplasty. There is anatomic alignment. Lucency in the soft tissu es is noted. IMPRESSION: Orthopedic follow-up.
[2018-07-17] MEDS: ceFAZolin IN SWFI 2 GM/20 ML SYRINGE IVP SCH (16:42)
[2018-07-17] MEDS ORDERED: SENNOSIDES-DOCUSATE SODIUM 1 EACH TAB PO SCH (21:00)
[2018-07-18] MEDS: ceFAZolin IN SWFI 2 GM/20 ML SYRINGE IVP SCH (01:11)
--- NOTE | 2018-07-18 01:16 | CONS ---
CONSULTATION DATE OF CONSULTATION: July 17, 2018. REASON FOR CONSULTATION: Medical management requested by Dr. Ruelas. CONSULTATION: This is a pleasant 68 -year-old patient of Dr. Aris Ag whose chronic stable medical conditions include hypertension, hyperlipidemia, osteoarthritis. The patient did undergo left total knee arthroplasty. Postprocedure pain is controlled. No nausea, vomiting, did tolerate his supper. Lying in bed, watching television. The patient has had 2 prior strokes with no residue. REVIEW OF SYSTEMS: CONSTITUTIONAL: None. HEENT: None. RESPIRATORY: None. CARDIOVASCULAR: None. GASTROINTESTINAL: None. GENITOURINARY: None. MUSCULOSKELETAL: Arthritic pain in different joints. DERMATOLOGICAL, HEMATOLOGIC, LYMPHATIC: none. PSYCHIATRY none. NEUROLOGICAL: None. PAST MEDICAL HISTORY: Stroke x2, hypertension, osteoarthritis, no residual. PAST SURGICAL HISTORY: Appendectomy, tonsillectomy, bilateral knee arthroscopy, left knee meniscus tear, bilateral carpal tunnel. PSYCH HISTORY: Anxiety and depression. SOCIAL HISTORY: Patient smoked for about 30 years, stopped in 1999. Smoked about a pack a day. Alcohol rarely, . FAMILY HISTORY: Breast cancer. HOME MEDICATIONS: 1. Norvasc 5 mg a day. 2. Effexor XR 150 mg a day. 3. Moringa 1 capsule p.o. daily. 4. Magnesium oxide 100 mg a day. 5. Advil 200 mg q.6h p.r.n. 6. Plavix 75 mg a day. 7. Vitamin D3 2000 units p.o. daily. 8. Aspirin 81 mg p.o. daily. 9. 25 mg subcu every 14 days. ALLERGIES: TO LIPITOR CAUSING MUSCLE PAIN. PHYSICAL EXAMINATION: VITAL SIGNS: Temperature 98.3, pulse 105, respiration 19, blood pressure 130/70, pulse ox 95% on room air. GENERAL APPEARANCE: Average built, sitting up, comfortable. EYES: Pupils equal. Conjunctivae normal. HEENT: External appearance of nose and ears normal. Oral cavity normal. NECK: JVD not raised. RESPIRATORY: Effort normal normal. LUNGS are clear. CARDIOVASCULAR: 1st and 2nd sounds normal. No edema. ABDOMEN: Soft, nontender. Liver and spleen not palpable. LYMPHATICS: No lymph node palpable in the neck and axilla. PSYCHIATRY: Alert and oriented x3. Mood and affect normal. NEUROLOGICAL: Pupils equal. Cranial nerves grossly intact. Power and sensation grossly intact. EXTREMITIES: Left knee in a dressing. INVESTIGATIONS: No blood work from today. ASSESSMENT: 1. Left total knee arthroplasty. 2. Primary osteoarthritis of multiple joints. 3. Hypertension. 4. Hyperlipidemia. PLAN: Home medications are resumed. Pain control is in place. DVT prophylaxis per Dr. Ruelas. Care was discussed with the patient. Questions were answered. Thank you Dr. Ruelas. Copy to Dr. Ag. MMMAYRL / COLTENN: [id number] /
[2018-07-18 01:27] VITALS: BP 125/75; PULSE 92; RESP 17; TEMP 98.5
[2018-07-18] MEDS: HYDROcodone/APAP 5-325MG 1 EACH TAB PO PRN ×2 (04:32→10:35)
[2018-07-18] MEDS ORDERED: MAGNESIUM OXIDE 400 MG TAB PO SCH (09:00)
[2018-07-18] MEDS ORDERED: VENLAFAXINE HCL ER 150 MG CAP PO SCH (09:00)
[2018-07-18] MEDS ORDERED: CLOPIDOGREL 75 MG TAB PO SCH (09:00)
[2018-07-18] MEDS ORDERED: amLODIPine 5 MG TAB PO SCH (09:00)
--- NOTE | 2018-07-18 10:18 | P.PN ---
Subjective Progress Note Date: 07/18/18 Principal diagnosis: Status post left total knee arthroplasty Patient evaluated today, she's done very well. Her pain is well-controlled. She's done well with physical therapy. Denies any chest pain or shortness of breath. Objective - Vital Signs Vital signs: Vital Signs Temp 98.5 F 07/18/18 01:26 Pulse 92 07/18/18 01:26 Resp 17 07/18/18 08:00 BP 125/75 07/18/18 01:26 Pulse Ox 94 L 07/18/18 01:26 Intake & Output 07/17/18 07/18/18 07/18/18 18:59 06:59 18:59 Intake Total 1401 750 Output Total 25 Balance 1376 750 Intake: IV 1301 Intake, IV Titration 100 400 Amount Lactated Ringers 1,000 ml 100 400 @ 50 mls/hr IV .Q20H YECENIA Rx#:[id number] Oral 350 Output: Estimated Blood Loss 25 Other: # Voids 2 - Exam Left lower extremity: Incision is clean, dry, and intact. The exofin fusion tape is in good condition. There is minimal soft tissue swelling and ecchymosis surrounding the medial and lateral aspects of the incision. Calf is soft, no tenderness with palpation. Plantar flexion, dorsiflexion, EHL, FHL are intact. Sensory exam to light touch throughout the extremity is intact, dorsal pedis pulses 2+. Assessment and Plan Plan: Assessment: Postop day #1 status post left total knee arthroplasty Plan: Pain control, we'll discharge home on oral medication GI and DVT prophylaxis, she will resume her Plavix and aspirin upon discharge Wound care instructions discussed Home physical therapy and nursing after discharge Medical recommendations Discharge planning: Patient will be discharged home today Time with Patient: Less than 30
--- NOTE | 2018-07-18 10:23 | P.DS ---
Providers Date of admission: 07/17/18 07:16 Expected date of discharge: 07/18/18 Attending physician: Noé Ruelas Consults: 07/17/18 09:25 Consult Physician Routine Consulting Provider: Aris Ag Reason/Comments: Medical Management Do you want consulting provider notified?: Yes Primary care physician: Aris Ag [facility] Course: Date of admission: 07/17/2018 Date of discharge: 07/18/2018 Admission diagnosis: Status post left total knee arthroplasty Discharge diagnosis: Same Attending physician: Dr. Ruelas Surgical procedures: Left total knee arthroplasty Brief history: Patient is a 68-year-old female with a history of progressive primary left knee osteoarthritis. At this point patient has failed conservative treatment measures and has opted to proceed with a elective left total knee arthroplasty. Hospital course: Details of patient's surgery can be found in operative report. Patient tolerated the procedure well and was subsequently transported to orthopedic floor. Patient's orthopeidc and medical care was provided daily. Patient had daily laboratory tests performed for evaluation of overall blood counts. Patient had daily physical therapy to include strengthening range of motion as well as education with walker ambulation. Patient had daily CPM usage as part of their physical therapy program. Patient was treated with Plavix for their postoperative DVT prophylaxis during their inpatient stay. Patient was noted to have a relatively uneventful postoperative course. Patient reported satisfactory pain control with oral pain medications by postoperative day 0. Patient showed satisfactory progress with physical therapy. Patient moved steadily through the program and had no difficulty meeting the goals by postoperative day 1. Given patient's otherwise satisfactory course and having met physical therapy goals, plan is to discharge patient home on postoperative day 1. Discharge condition/disposition: Patient will be discharged home in stable condition. Discharge medications: Instructions are given on resumption of patient's normal daily medications per primary care recommendation, in addition patient will be prescribed [place] 5 mg/325 mg, Colace 100 mg. Discharge instructions: 1. Wound care and infection precautions, keep incision dry and covered while showering, no lotions, creams, moisturizers. No soaking, tubs, pools, hottubs. Do not scrub over the incision. 2. Weight-bear as tolerated with walker / cane until follow-up. 3. Ice and elevate when necessary. Do not exceed 20 minutes per hour with ice pack. 4. Utilize compression sleeve until seen at first follow up appointment. 5. Visiting nursing care. 6. Home physical therapy. 7. Pain meds and anticoagulants per prescription. 8. Pain medication has potential to cause constipation. Increase oral fluid and fiber intake. Contact primary care provider if you have not had a bowel movement within 48 hours after discharge 9. No anti-inflammatory medication until discussed at first post operative visit, this including Motrin, Aleve, Mobic, Diclofenac. 10. Follow up in office at 2 weeks postop with Sherman Huertas PA-C 11. Follow up with your primary care doctor 7-10 days after discharge. 12. Contact [facility] with any questions, . Procedures: Left total knee arthroplasty Patient Condition at Discharge: Good Plan - Discharge Summary Discharge Rx Participant: Yes New Discharge Prescriptions: New Docusate [Colace] 100 mg PO DAILY #30 capsule Hydrocodone/Acetaminophen [[place] 5-325] 1 - 2 each PO Q6HR PRN #40 tab PRN Reason: Pain No Action amLODIPine BESYLATE [Norvasc] 5 mg PO DAILY Venlafaxine HCl [Effexor XR] 150 mg PO DAILY Cholecalciferol [Vitamin D3] 2,000 unit PO DAILY Aspirin 81 mg PO DAILY chew Clopidogrel [Plavix] 75 mg PO DAILY Alirocumab [Praluent Pen] 75 mg SQ Q14D Magnesium Oxide [Hollis] 500 mg PO DAILY Moringa 1 cap PO DAILY Ibuprofen [Advil] 200 mg PO Q6H PRN PRN Reason: Pain Discharge Medication List Cholecalciferol [Vitamin D3] 2,000 unit PO DAILY 07/20/16 [History] Venlafaxine HCl [Effexor XR] 150 mg PO DAILY 07/20/16 [History] amLODIPine BESYLATE [Norvasc] 5 mg PO DAILY 07/20/16 [History] Aspirin 81 mg PO DAILY chew 03/02/17 [Rx] Alirocumab [Praluent Pen] 75 mg SQ Q14D 06/21/17 [History] Clopidogrel [Plavix] 75 mg PO DAILY 06/21/17 [History] Ibuprofen [Advil] 200 mg PO Q6H PRN 07/05/18 [History] Magnesium Oxide [Hollis] 500 mg PO DAILY 07/05/18 [History] Moring[place] 1 cap PO DAILY 07/05/18 [History] Docusate [Colace] 100 mg PO DAILY #30 capsule 07/18/18 [Rx] Hydrocodone/Acetaminophen [[place] 5-325] 1 - 2 each PO Q6HR PRN #40 tab 07/18/18 [Rx] Follow up Appointment(s)/Referral(s): Wilton Huertas PAC [PHYSICIAN LOSS CONTROL REPRESENTATIVE] - 2 Weeks Activity/Diet/Wound Care/Special Instructions: Orthopedic Discharge Instructions: 1. Wound care and infection precautions, keep incision dry and covered while showering, no lotions, creams, moisturizers. No soaking, pools, hot tubs. Do not scrub over incision. 2. Weight-bear as tolerated with walker / cane until follow-up. 3. Ice and elevate when necessary. Do not exceed 20 minutes per hour with ice pack. 4. Utilize compression sleeve until seen at first follow up appointment. 5. Pain meds and anticoagulants per prescription. 6. Pain medication has potential to cause constipation. Increase oral fluid and fiber intake. Contact primary care provider if you have not had a bowel movement within 48 hours after discharge. 7. No anti-inflammatory medication until discussed at first post operative visit, this including Motrin, Aleve, Mobic, Diclofenac. 8. Follow up in office at 2 weeks postop with Sherman Huertas PA-C 9. Follow up with your primary care doctor 7-10 days after discharge. 10. Contact [facility] with any questions, . Discharge Disposition: HOME WITH HOME HEALTH SERVICES
--- NOTE | 2018-07-18 10:24 | P.PN ---
Progress Note - Text Progress Note Date: 07/18/18 68-year-old female status post left total knee arthroplasty postop day #1 with a abductor canal catheter. Patient doing well postoperatively VAS is a 2-3 out of 10 depending on activity. Ambulating well without difficulty. Tolerating diet. Continue On-Q pump at current settings
[2018-07-18 10:57] LABS: Basophils % (A) 0 %; Eosinophils % (A) 1 %; HCT 31.4 % (34.0-46.0); Lymphocytes # (A) 1.4 k/uL (1.0-4.8); Lymphocytes % (A) 20 %; MCHC 32.1 g/dL (31.0-37.0); Monocytes # (A) 0.2 k/uL (0-1.0); Monocytes % (A) 4 %; Neutrophils # (A) 5.1 k/uL (1.3-7.7); Neutrophils % (A) 75 %; Platelet Count 177 k/uL (150-450); RBC 3.87 m/uL (3.80-5.40); RDW 14.2 % (11.5-15.5); WBC 6.8 k/uL (3.8-10.6)
[2018-07-18 11:02] LABS: HGB 10.1 gm/dL (11.4-16.0)
--- NOTE | 2018-07-19 07:30 | PN ---
PROGRESS NOTE DATE OF SERVICE: 07/18/2018 PRESENTING COMPLAINT: Left knee arthroplasty. INTERVAL HISTORY: Patient is status post left knee surgery. Seen by me yesterday. Doing well. Pain is well controlled. No new issues, did work with therapy. Did tolerate her meals. REVIEW OF SYSTEMS: Done for constitutional, cardiovascular, GI, pulmonary; relevant findings above. CURRENT MEDICATIONS: Reviewed. PHYSICAL EXAMINATION: Temperature 98.5, pulse 92, respiration 17, blood pressure 120/75, pulse ox 94% on room air. GENERAL APPEARANCE: Sitting up on the bed, comfortable. EYES: Pupils equal, conjunctivae normal. NECK: JVD not raised. Mass not palpable. RESPIRATORY: Effort normal. Lungs are clear. CARDIOVASCULAR: First and second heart sounds normal, no edema. ABDOMEN: Soft, nontender. Liver and spleen not palpable. PSYCHIATRY: Alert and oriented x3. Mood and affect was normal. INVESTIGATIONS: White count 6.8, hemoglobin 10.1. ASSESSMENT: 1. Left total knee arthroplasty. 2. Primary osteoarthritis multiple joints. 3. Hypertension, essential. 4. Hyperlipidemia. PLAN: Stable, continue medication plan. Follow up with family doctor upon discharge. Thank you, Dr. Ruelas. MMODL / IJN: [id number] /
== END 2018-07-18 13:15 | disposition home health service (06) | DRG 470 ==
LOC: 2ORMAIN 07:16 → 4SSUR 12:16
PROVIDERS: ADMIT Orthopaedic Surgery; ATTEND Orthopaedic Surgery
PROC: 0SRD0J9 Replacement of Left Knee Joint with Synthetic Substitute, Cemented, Open Approach (ICD-10-PCS; principal; 2018-07-17 10:05)
DX: M17.12 Unilateral primary osteoarthritis, left knee (principal); I10 Essential (primary) hypertension; E78.5 Hyperlipidemia, unspecified; F41.9 Anxiety disorder, unspecified; F32.9 Major depressive disorder, single episode, unspecified; Z79.899 Other long term (current) drug therapy; Z79.02 Long term (current) use of antithrombotics/antiplatelets; Z79.82 Long term (current) use of aspirin; Z86.73 Personal history of transient ischemic attack (TIA), and cerebral infarction without residual deficits; Z90.49 Acquired absence of other specified parts of digestive tract; Z87.891 Personal history of nicotine dependence; Z80.3 Family history of malignant neoplasm of breast
CPT/HCPCS: 85025; 88300

== ENCOUNTER → 2019-06-28 | Outpatient (CLI) | payer MEDICARE, OTHER ==
--- NOTE | 2019-06-28 15:07 | MM ---
Reason for exam: screening (asymptomatic). Last mammogram was performed 1 year and 4 months ago. History: Patient is postmenopausal. Family history of breast cancer in maternal cousin and breast cancer in mother. Benign ultrasound-guided core biopsy of the right breast, November 08, 2001. Benign ultrasound-guided core biopsy of the right breast, November 08, 2001. 2 core biopsies of the right breast. Excisional biopsy of the left breast. Physical Findings: A clinical breast exam by your physician is recommended on an annual basis and results should be correlated with mammographic findings. MG 3D Screening Mammo W/Cad Bilateral CC and MLO view(s) were taken. Prior study comparison: March 03, 2018, bilateral MG 3d screening mammo w/cad. May 12, 2016, bilateral MG screening mammo w CAD. There are scattered fibroglandular densities. There is a new 2.5cm right retroareolar mass, patient noted bruising in this area. Stable right upper outer quadrant 7mm mass back to 2015. No suspicious abnormality on the left breast. ASSESSMENT: Incomplete: need additional imaging evaluation, BI-RAD 0 RECOMMENDATION: Ultrasound of the right breast. [facility] will attempt to contact patient to return for ultrasound.
== END | disposition home or self-care (01) ==
LOC: RADMAMWWP 12:27
PROVIDERS: ATTEND Internal Medicine
DX: Z12.31 Encounter for screening mammogram for malignant neoplasm of breast (principal)
CPT/HCPCS: 77063; 77067

== ENCOUNTER → 2019-07-31 | Outpatient (CLI) | payer MEDICARE, OTHER ==
--- NOTE | 2019-08-08 10:16 | USB ---
Reason for exam: additional evaluation requested from abnormal screening. History: Patient is postmenopausal. Family history of breast cancer in maternal cousin and breast cancer in mother. Benign ultrasound-guided core biopsy of the right breast, November 08, 2001. Benign ultrasound-guided core biopsy of the right breast, November 08, 2001. 2 core biopsies of the right breast. Excisional biopsy of the left breast. Physical Findings: Nurse Summary: Patient complains of resolving bruising right breast 6 o'clock, 1cm lump at 1 o'clock (nurse mj). US Breast Workup Limited RT Right limited breast ultrasound including focal area of concern, retroareolar and axilla demonstrates a 1.8 x 0.9 x 2.3cm mixed lesion at 1o'clock, probable residual hematoma, follow up recommended. These results were verbally communicated with the patient and result sheet given to the patient on 07/31/19. ASSESSMENT: Probably benign, BI-RAD 3 RECOMMENDATION: Ultrasound of the right breast in 1 month. (follow up in 6 weeks) Manage patient on a clinical basis.
== END | disposition home or self-care (01) ==
LOC: RADUSWWP 10:33
PROVIDERS: ATTEND Internal Medicine
DX: R92.8 Other abnormal and inconclusive findings on diagnostic imaging of breast (principal)

== ENCOUNTER → 2019-10-02 | Outpatient (CLI) | payer MEDICARE, OTHER ==
--- NOTE | 2019-10-02 11:10 | USB ---
Reason for exam: follow-up at short interval from prior study. History: Patient is postmenopausal. Family history of breast cancer in maternal cousin and breast cancer in mother. Benign ultrasound-guided core biopsy of the right breast, November 08, 2001. Benign ultrasound-guided core biopsy of the right breast, November 08, 2001. 2 core biopsies of the right breast. Excisional biopsy of the left breast. Physical Findings: Nurse Summary: patient denies concerns today, 2cm hard, non-moveable lump right beast 2 o'clock, birthmark noted right breast 6 o'clock (nurse TM). US Breast Limited RT Technologist: Jeannette Lew Right limited breast ultrasound including focal area of concern, retroareolar and axilla demonstrates a 1.3 x 1.4 x 0.4cm mixed, vascular lesion at 1 o'clock, decreased in size prior, probable resolving hematoma and a 0.6 x 0.6 x 0.3cm oval, vague, hyperechoic lesion at 3 o'clock, possible small subcutaneous subpectoral lipoma. Benign right axillary lymph node. These results were verbally communicated with the patient and result sheet given to the patient on 10/02/19. ASSESSMENT: Probably benign, BI-RAD 3 RECOMMENDATION: Ultrasound of the right breast in 3 months. (3-6 months)
== END | disposition home or self-care (01) ==
LOC: RADUSWWP 09:33
PROVIDERS: ATTEND Internal Medicine
DX: R92.8 Other abnormal and inconclusive findings on diagnostic imaging of breast (principal)

== ENCOUNTER → 2020-10-20 | Outpatient (CLI) | payer MEDICARE, OTHER | END | disposition home or self-care (01) | LOC: LABPAT 13:21 | PROVIDERS: ATTEND Orthopaedic Surgery | DX: Z01.812 Encounter for preprocedural laboratory examination (principal) | CPT/HCPCS: 87070 ==

== ENCOUNTER 2020-10-27 11:23 | Day surgery (SDC) | payer MEDICARE, OTHER ==
--- NOTE | 2020-10-26 10:50 | HP ---
HISTORY AND PHYSICAL REASON FOR ADMISSION: Surgery 10/30/2020. Neva Zambrano is a 70-year-old patient seen with symptomatic right knee osteoarthritis. We discussed options for treatment. She elected to proceed with right total knee arthroplasty. Consent was obtained. Medical clearance was provided by Dr. Clifton. PAST MEDICAL HISTORY: Hypertension. PAST SURGICAL HISTORY: Knee arthroscopy, left total knee arthroplasty. DAILY MEDICATIONS: Amlodipine, aspirin, vitamins. ALLERGIES: None reported. SOCIAL HISTORY: She denies tobacco use. PHYSICAL EVALUATION OF THE RIGHT KNEE: Range of motion zero to 130. Mild effusion. Tenderness medial joint line. Crepitus medial patellofemoral compartments with range of motion. Pain with patellofemoral compression. Ligaments stable. Hip rotation without pain. Distal neurovascular exam is intact. RADIOGRAPHS: Right knee radiographs reveal severe osteoarthritic changes. IMPRESSION: 1. Right knee osteoarthritis. 2. Hypertension. PLAN: Right total knee arthroplasty. Surgery scheduled for 10/27/2020. MMODL / IJN: [id number] /
[~2020-10-27 11:23] MED LIST changes: -ACETAMINOPHEN TAB 500 MG TAB PO ONE; +ACETAMINOPHEN TAB 500 MG TAB PO PRN; -DEXAMETHASONE SOD PHOSPHATE 10 MG/ML 1 ML VIAL IV ONE; +DEXAMETHASONE SOD PHOSPHATE 4 MG/ML 1 ML VIAL IV ONE; -LACTATED RINGERS 1,000 ML IV SCH; +LIDOCAINE 1% (10MG/ML) FOR IV START INTRADERMA PRN; -MELOXICAM 7.5 MG TAB PO ONE; +MELOXICAM 7.5 MG TAB PO PRN; -MIDAZOLAM (PF) 2 MG/2 ML VIAL IV PRN; +MIDAZOLAM 2 MG/2 ML VIAL IV PRN; +ROPIVACAINE/EPI/CLONIDINE/KET 50 ML SYRINGE MISCELLANE PRN; -TRANEXAMIC ACID 1,000 MG in SODIUM CHLORIDE 0.9% 100 ML IVPB ONE; +TRANEXAMIC ACID 1,000 MG in SODIUM CHLORIDE 0.9% 100 ML IVPB PRN; -ceFAZolin IN SWFI 2 GM/20 ML SYRINGE IVP ONE
[2020-10-27] MEDS: LACTATED RINGERS 1,000 ML IV SCH ×3 (12:18→22:37)
[2020-10-27] MEDS ORDERED: MIDAZOLAM 2 MG/2 ML VIAL IVP ONE (12:29)
[2020-10-27] MEDS ORDERED: MIDAZOLAM 2 MG/2 ML VIAL ONE (13:00)
[2020-10-27] MEDS ORDERED: fentaNYL (PF) 50 MCG/ML 2 ML AMP ONE (13:00)
[2020-10-27] MEDS ORDERED: TRANEXAMIC ACID 1,000 MG/10 ML VIAL ONE (13:00)
[2020-10-27] MEDS ORDERED: PROPOFOL 10 MG/ML 20 ML VIAL IV ONE (13:00)
[2020-10-27] MEDS ORDERED: ROPIVACAINE 5 MG/ML 30 ML VIAL ONE (13:00)
[2020-10-27] MEDS ORDERED: PHENYLEPHRINE-0.9% NACL SYG 1,000 MCG/10 ML SYRINGE ONE (13:00)
[2020-10-27] MEDS ORDERED: SODIUM CHLORIDE 0.9% 100 ML BAG ONE (13:00)
[2020-10-27] MEDS ORDERED: DEXAMETHASONE SOD PHOSPHATE 4 MG/ML 1 ML VIAL ONE (13:00)
[2020-10-27] MEDS ORDERED: ceFAZolin 1,000 MG in SODIUM CHLORIDE 0.9% 1,000 ML IRRIGATION ONE (13:34)
[2020-10-27] MEDS ORDERED: LACTATED RINGERS 1,000 ML IV ONE (13:42)
[2020-10-27] MEDS ORDERED: HYDROmorphone 0.2 MG/1 ML SYRINGE IVP PRN (14:53)
[2020-10-27] MEDS ORDERED: HYDROcodone/APAP 5-325MG 1 EACH TAB PO PRN (14:53)
[2020-10-27] MEDS ORDERED: NALOXONE 0.4 MG/ML 1 ML VIAL IV PRN (14:53)
[2020-10-27] MEDS ORDERED: ONDANSETRON 4 MG/2 ML VIAL IVP PRN (14:53)
[2020-10-27] MEDS ORDERED: HYDROmorphone 0.5 MG/0.5 ML SYRINGE IVP PRN ×2 (14:53)
--- NOTE | 2020-10-27 14:53 | P.OP ---
Date of Procedure: 10/27/20 Preoperative Diagnosis: Right knee osteoarthritis Postoperative Diagnosis: Right knee osteoarthritis Procedure(s) Performed: Right total knee arthroplasty Implants: 1. Depuy attune size 3 right cruciate retaining cemented femur 2. Depuy attune size 4 fixed bearing cemented tibial baseplate 3. Depuy attune size 3 fixed bearing cruciate retaining 7 mm polyethylene tibial insert 4. Depuy attune 35 mm all polyethylene cemented patella Anesthesia: regional (Adductor canal catheter, I pack block), spinal Surgeon: Noé Ruelas Crane Rigger #1: Dominic Bliss Estimated Blood Loss (ml): 45 Pathology: other (Bone) Condition: stable Disposition: PACU Indications for Procedure: 70-year-old patient seen with symptomatic right knee osteoarthritis. After treatment options were discussed, she elected to proceed with total knee a rthroplasty. Operative Findings: See description of procedure Description of Procedure: Patient was taken to the operative suite after having an adductor canal catheter placed by the department of anesthesia along with Ipack block for postoperative pain management. Patient underwent a spinal anesthetic by the department of anesthesia. Patient was given preoperative IV intake antibiotics and TXA. A well-padded tourniquet was placed about the right lower extremity. The lower extremity was then prepped and draped in the normal sterile orthopedic fashion. The extremity was elevated, a tourniquet was insufflated to 300. A standard anterior incision was made sharply through skin. Dissection was taken down through the subcutaneous soft tissues down to the extensor mechanism. A medial arthrotomy was performed, patella was everted and knee was flexed. There was advanced osteoarthritis noted. I introduced my distal intramedullary femoral drill. I then introduced the distal femoral cutting jig. Sherman SHEFFIELD secured the cutting jig with 2 pins. I held retractors in position while Dominic SHEFFIELD performed the distal femoral resection through the guide area we now removed her distal femoral cutting guide. We now placed our 4-in-1 femoral cutting block and positioned and it was secured with 2 pins by Dominic SHEFFIELD while I held the block in position. The distal femoral finishing was now completed. A proximal tibial cutting guide was positioned. I held the guide in the appropriate position with both hands while Dominic SHEFFIELD inserted stabilizing pins into the guide. Proximal tibial cut was made. We now placed a trial femoral component into position, along with an appropriate size tibial tray and insert. We now took the knee through range of motion and had full extension good flexion and good overall soft tissue balance noted. The patella was everted and stabilized with 2 towel clips held by Doimnic SHEFFIELD while I performed a flush with patellar quad tendon utilizing a fresh sawblade. We templated the patella, appropriate drill holes were made. An appropriate trial patella was positioned, knee was taken through full range of motion with the patella tracking very nicely. The trial patella was removed. Drill holes were made through the femoral component. All trial components were removed after marking off the appropriate rotation of the tibia. Retractors were now positioned along the proximal tibia. An appropriate keel punch was made with the appropriate size tibial guide by myself on Dominic SHEFFIELD assisted by holding retractors. At this point appropriate size implants were chosen and opened. The joint was irrigated copiously with pulse lavage mechanical irrigation. The posterior capsule was infiltrated with local analgesic. The wound was irrigated with pulse lavage mechanical irrigation. We mixed antibiotic methylmethacrylate. We placed the knee into flexion. We placed multiple retractors assisted by Dominic SHEFFIELD to expose the proximal tibia. Once the methyl methacrylate was ready, the tibial component was cemented into place removing any excess methylmethacrylate form by both myself and Dominic SHEFFIELD. The femoral component was cemented into place removing the removing any excess methylmethacrylate performed by both myself and Dominic SHEFFIELD. We then inserted the appropriate size polyethylene tibial insert. We made sure that it was locked into position. We took the knee into full extension, and then back in a flexion making sure we had removed any excess methylmethacrylate. The patellar component was then cemented down and secured with clamp. Excess methylmethacrylate removed. We kept the knee in full extension, patellar clamp in position until methylmethacrylate had hardened. Once it had hardened the patellar clamp was removed. The knee was taken through full range of motion. The patella tracked nicely. There was good soft tissue balancing. The tourniquet was now released. Additional hemostasis was achieved via electrocautery. A second gram of TXA was given. The wound again was irrigated with pulse lavage mechanical irrigation. The superficial soft tissues were infiltrated local analgesic. The extensor mechanism was repaired with Ethibond. We checked the repair with range of motion and it was stable. The subcutaneous soft tissues were repaired with Vicryl in layers. The skin was approximated with pernio/Dermabond. Sterile dressings were applied followed by loose web roll and Toi bandage. The patient was transferred to a bed, and taken to recovery in stable and satisfactory condition. Dominic SHEFFIELD assisted with this complex procedure.
--- NOTE | 2020-10-27 15:50 | XR ---
EXAMINATION TYPE: XR knee limited RT DATE OF EXAM: 10/27/2020 CLINICAL HISTORY: Right knee pain and arthritis status post total knee replacement. TECHNIQUE: Portable AP and crosstable lateral views of the Right knee are obtained immediately posto peratively. COMPARISON: 09/17/2020 FINDINGS: Metallic hardware from total right knee arthroplasty is seen and appears satisfactory in a lignment and position. There is evidence of recent surgery with diffuse subcutaneous gas , vertical skin mónica, and percutaneous suprapatellar surgical drain noted. IMPRESSION: METALLIC HARDWARE FROM TOTAL right KNEE ARTHROPLASTY IS SATISFACTORY IN ALIGNMENT.
--- NOTE | 2020-10-27 17:07 | P.CONS ---
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 She is currently admitted under Dr. Ruelas and is status post total right knee arthroplasty. We have been consulted to follow along with patient throughout her admission for continued medical management. Patient currently postoperative and reports complete pain control at this time. She has been tolerating clear liquid diet and has had no episodes of postoperative nausea or vomiting. Patient states that she is feeling well and she is visiting with her at bedside. She denies having any other complaints at this time including headache, lightheadedness, dizziness, changes in vision or hearing, tinnitus, chest pain or palpitations, shortness of breath, abdominal pain, nausea, vomiting, or any other complaints at this time. Patient denies history of previous DVT or PE, she is on Plavix and aspirin from previous CVA and likely to resume tomorrow. Review of systems: Pertinent positives and negatives as discussed in HPI, a complete review of systems was performed and all other systems are negative. Physical exam: Vital signs reviewed and stable. General: Nontoxic, no distress and appears stated age. Derm: Skin warm and dry, normal coloration for ethnicity. Head: Atraumatic, normocephalic and symmetric. Eyes: EOMs intact, no lid lag, and anicteric sclera Mouth: no lip lesions, mucus membranes moist Cardiovascular: regular rate and rhythm with normal S1S2, no murmur, positive posterior tibial pulses bilaterally, and cap refill < 2 seconds. Lungs: Respirations even, regular, and unlabored on room air. Lungs CTA bilaterally, no rhonchi, no rales, no wheezing, and no accessory muscle usage. Abdominal: soft, nontender to palpation, no guarding, no appreciable organomegaly Ext:. No gross muscle atrophy, no edema, no contractures. Postsurgical dressing in place to right knee, pain pump in place Neuro: Speech clear, face symmetrical and CN II-XII grossly intact with no noted focal neuro deficits Psych: Alert and oriented to person, place, time, and situation. Appropriate and pleasant affect. Assessment and Plan of Care: Status post total right knee arthroplasty -Pain management, postsurgical wound management, DVT prophylaxis, PT/OT, and weightbearing per primary admitting orthopedic surgery team. -Patient currently on Lovenox for DVT prophylaxis. -Encourage incentive spirometer use 10-15 times hourly while awake. Hypertension -Monitor vital signs and continue daily medication regimen with amlodipine. Depression and anxiety -Controlled with medication regimen. Patient to continue daily medication regimen with Effexor. History of 2 previous CVAs no residual deficits -Patient takes aspirin and Plavix, likely to resume tomorrow pending a.m. labs and clearance by orthopedic surgery team. Thank you for allowing us to participate in the care of this pleasant patient. Do not hesitate to contact us with questions. Someone can be reached from the [facility] hospitalist group all hours of the day at [phone] or via [employer]. Past Medical History Past Medical History: CVA/TIA, Hyperlipidemia, Hypertension, Osteoarthritis (OA), Pulmonary Embolus (PE) Additional Past Medical History / Comment(s): stroke x 2 (Feb 2017,May 2017)-no residual effects. History of Any Multi-Drug Resistant Organisms: None Reported Past Surgical History: Appendectomy, Orthopedic Surgery, Tonsillectomy Additional Past Surgical History / Comment(s): hunter knee arthroscopy, lt knee meniscus repair, hunter carpal tunnel Past Anesthesia/Blood Transfusion Reactions: Previous Problems w/ Anesthesia, Motion Sickness Additional Past Anesthesia/Blood Transfusion Reaction / Comm: "hard time waking up ", claustrophobia Smoking Status: Former smoker - Past Family History Mother Family Medical History: Cancer Brother(s) Family Medical History: Cancer Father Family Medical History: Hyperlipidemia, Myocardial Infarction (DE) Additional Family Medical History / Comment(s): smoker Medications and Allergies Home Medications Medication Instructions Recorded Confirmed Type Cholecalciferol [Vitamin D3 (25 2,000 unit PO DAILY 07/20/16 10/27/20 History Mcg = 1000 Iu)] Venlafaxine HCl [Effexor XR] 150 mg PO QAM 07/20/16 10/27/20 History amLODIPine BESYLATE [Norvasc] 5 mg PO QAM 07/20/16 10/27/20 History Aspirin 81 mg PO DAILY chew 03/02/17 10/23/20 Rx Alirocumab [Praluent Pen] 75 mg SQ Q14D 06/21/17 10/23/20 History Clopidogrel [Plavix] 75 mg PO QAM 06/21/17 10/23/20 History Ibuprofen [Advil] 200 mg PO Q6H PRN 07/05/18 10/23/20 History Magnesium Oxide [Hollis] 500 mg PO DAILY 07/05/18 10/27/20 History Moringa 1 cap PO DAILY 07/05/18 10/27/20 History Covid-19 Vacc,Mrna(Moderna)/Pf 2 dose IM ONCE 10/23/20 10/27/20 History [Moderna Covid-19 Vaccine (Eua)] Allergies Allergy/AdvReac Type Severity Reaction Status Date / Time atorvastatin [From Lipitor] Allergy RASH,MUSCLE Verified 10/27/20 11:38 PAIN Physical Exam Vitals: Vital Signs Temp Pulse Resp BP Pulse Ox 10/27/20 16:01 81 16 130/73 91 L 10/27/20 15:46 72 16 129/61 91 L 10/27/20 15:31 70 16 128/61 91 L 10/27/20 15:16 71 16 112/56 92 L 10/27/20 15:01 97.1 F L 72 12 105/51 100 10/27/20 12:56 79 15 145/70 97 10/27/20 11:53 97.3 F L 80 15 143/83 97 Intake and Output 10/27/20 10/27/20 10/27/20 06:59 14:59 22:59 Intake Total 1251 200 Output Total 45 Balance 1206 200 Intake: IV 1251 200 Output: Estimated Blood Loss 45 Other: Weight 75.6 kg 75.6 kg <Deborah Santiago - Last Filed: 10/27/20 17:11> History of Present Illness - History of Present Illness Patient seen and examined independently. Patient was also seen by Brandon Gomez NP and case was discussed. I am in agreement with subjective, physical exam, assessment and plan as written above and amended below. Pain controlled. No complaints. All questions answered. Physical Exam Osteopathic Statement: *. No significant issues noted on an osteopathic structural exam other than those noted in the History and Physical/Consult. Vitals: Vital Signs Temp Pulse Resp BP Pulse Ox 10/27/20 16:01 81 16 130/73 91 L 10/27/20 15:46 72 16 129/61 91 L 10/27/20 15:31 70 16 128/61 91 L 10/27/20 15:16 71 16 112/56 92 L 10/27/20 15:01 97.1 F L 72 12 105/51 100 10/27/20 12:56 79 15 145/70 97 10/27/20 11:53 97.3 F L 80 15 143/83 97 Intake and Output 10/27/20 10/27/20 10/27/20 06:59 14:59 22:59 Intake Total 1251 200 Output Total 45 Balance 1206 200 Intake: IV 1251 200 Output: Estimated Blood Loss 45 Other: Weight 75.6 kg 75.6 kg
[2020-10-27 19:15] LABS: Glucose,Whole Blood 177 mg/dL (75-99)
[2020-10-27] MEDS ORDERED: SODIUM CHLORIDE 0.9% 1,000 ML IV ONE (19:25)
[2020-10-27] MEDS: HYDROcodone/APAP 5-325MG 1 EACH TAB PO PRN (20:33)
[2020-10-27] MEDS ORDERED: SENNOSIDES-DOCUSATE SODIUM 1 EACH TAB PO SCH (21:00)
[2020-10-28 03:02] VITALS: PULSE 100
[2020-10-28] MEDS: LACTATED RINGERS 1,000 ML IV SCH ×2 (04:54→10:01)
--- NOTE | 2020-10-28 07:24 | P.PN ---
Progress Note - Text 10/2020 706am [id number]-smv female status post total knee replacement by Dr. Ruelas. Patient has an On-Q pump for postop pain control with the solution running at 8 mL an hour with a VAS of 5 with a pain located posteriorly. Dressing clean dry and intact plan to continue On-Q pump infusion
[2020-10-28 07:29] VITALS: BP 116/62; RESP 16; TEMP 98.3
--- NOTE | 2020-10-28 07:30 | P.ANPRN ---
Procedure Note - Anesthesia - Nerve Block Performed Right Adductor Canal Infusion Time Out Performed: Yes Date of Procedure: 10/27/20 Procedure Start Time: 12:28 Procedure Stop Time: 12:39 Location of Patient: PreOp Indication: Acute Post-Operative Pain, Requested by Surgeon Sedation Type: Sedate with meaningful contact maintained Preparation: Sterile Prep, Sterile Dressing Position: Supine Catheter: Indwelling Needle Types: Pajunk Needle Gauge: 21 Ultrasound used to visualize needle placement: Yes Ultrasound used to observe medication spread: Yes Blood Aspirated: No Pain Paresthesia on Injection Noted: No Resistance on Injection: Normal Image Stored and Saved: Yes Events: Uneventful and Well Tolerated (Ropivacaine 0.5% 20 mL given)
--- NOTE | 2020-10-28 07:31 | P.ANPRN ---
Procedure Note - Anesthesia - Nerve Block Performed Right Elena Single Time Out Performed: Yes Date of Procedure: 10/27/20 Procedure Start Time: 12:40 Procedure Stop Time: 12:44 Location of Patient: PreOp Indication: Acute Post-Operative Pain Preparation: Sterile Prep Position: Supine Needle Types: Pajunk Needle Gauge: 21 Ultrasound used to visualize needle placement: Yes Ultrasound used to observe medication spread: Yes Blood Aspirated: No Pain Paresthesia on Injection Noted: No Resistance on Injection: Normal Image Stored and Saved: Yes Events: Uneventful and Well Tolerated (Ropivacaine 0.5% 20 mL plus dexamethasone 4 mg was given)
[2020-10-28] MEDS ORDERED: MELOXICAM 7.5 MG TAB PO SCH (09:00)
[2020-10-28] MEDS ORDERED: VENLAFAXINE HCL ER 150 MG CAP PO SCH (09:00)
[2020-10-28] MEDS ORDERED: ENOXAPARIN 40 MG/0.4 ML SYRINGE SQ SCH (09:00)
[2020-10-28] MEDS ORDERED: amLODIPine 5 MG TAB PO SCH (09:00)
--- NOTE | 2020-10-28 09:21 | P.PN ---
<Brandon Gomez - Last Filed: 10/28/20 15:32> Subjective Progress Note Date: 10/28/20 History of Presenting Illness: Patient is a very pleasant 70-year-old female with a past medical history of hypertension, anxiety, depression, and 2 previous CVAs with no residual deficits on Plavix and aspirin. She is currently admitted under Dr. Ruelas and is status post total right knee arthroplasty. We have been consulted to follow along with patient throughout her admission for continued medical management. Patient denies history of previous DVT or PE, and to resume Plavix and aspirin once cleared by primary orthopedic team. Physical exam: Patient currently postoperative day 1 and reports complete pain control at this time. She has been tolerating diet and has had no episodes of postoperative nausea or vomiting, she has been ambulatory in room with walker independently. She denies having any other complaints at this time including headache, lightheadedness, dizziness, changes in vision or hearing, tinnitus, chest pain or palpitations, shortness of breath, abdominal pain, nausea, vomiting, or any other complaints at this time. Patient medically stable for discharge once cleared by orthopedic team. Vital signs reviewed and stable. General: Nontoxic, no distress and appears stated age. Derm: Skin warm and dry, normal coloration for ethnicity. Head: Atraumatic, normocephalic and symmetric. Eyes: EOMs intact, no lid lag, and anicteric sclera Mouth: no lip lesions, mucus membranes moist Cardiovascular: regular rate and rhythm with normal S1S2, no murmur, positive posterior tibial pulses bilaterally, and cap refill < 2 seconds. Lungs: Respirations even, regular, and unlabored on room air. Lungs CTA bilaterally, no rhonchi, no rales, no wheezing, and no accessory muscle usage. Abdominal: soft, nontender to palpation, no guarding, no appreciable organomegaly Ext:. No gross muscle atrophy, no edema, no contractures. Postsurgical dressing in place to right knee, pain pump in place. Dressing intact with no signs of bleeding. Neuro: Speech clear, face symmetrical and CN II-XII grossly intact with no noted focal neuro deficits Psych: Alert and oriented to person, place, time, and situation. Appropriate and pleasant affect. Assessment and Plan of Care: Status post total right knee arthroplasty -Pain management, postsurgical wound management, DVT prophylaxis, PT/OT, and weightbearing per primary admitting orthopedic surgery team. -Patient currently on Lovenox for DVT prophylaxis. -Encourage incentive spirometer use 10-15 times hourly while awake. Hypertension -Monitor vital signs and continue daily medication regimen with amlodipine. Depression and anxiety -Controlled with medication regimen. Patient to continue daily medication regimen with Effexor. History of 2 previous CVAs no residual deficits -Patient takes aspirin and Plavix, to resume once cleared by orthopedic surgery. Thank you for allowing us to participate in the care of this pleasant patient. Do not hesitate to contact us with questions. Someone can be reached from the [facility] hospitalist group all hours of the day at [phone] or via [employer]. Objective - Vital Signs Vital signs: Vital Signs Temp 98.3 F 10/28/20 07:28 Pulse 100 10/28/20 07:28 Resp 16 10/28/20 07:28 BP 116/62 10/28/20 07:28 Pulse Ox 97 10/28/20 07:28 Intake & Output 10/27/20 10/28/20 10/28/20 18:59 06:59 18:59 Intake Total 1451 2650 Output Total 45 Balance 1406 2650 Weight 75.6 kg Intake: IV 1451 Intake, IV Titration 2050 Amount Lactated Ringers 1,000 ml 1000 @ 100 mls/hr IV .Q10H [facility] Rx#:[id number] Sodium Chloride 0.9% 1, 1000 000 ml @ 999 mls/hr IV . Q1H1M [facility] Rx#:[id number] ceFAZolin 2 gm In Sodium 50 Chloride 0.9% 50 ml @ 100 mls/hr IVPB Q8H [facility] Rx#: [id number] Oral 600 Output: Estimated Blood Loss 45 Other: # Voids 0 3 - Labs CBC & Chem 7: 10/28/20 06:19 Labs: Abnormal Lab Results - Last 24 Hours (Table) 10/27/20 Range/Units 19:13 POC Glucose (mg/dL) 177 H (75-99) mg/dL <Deborah Santiago - Last Filed: 10/28/20 18:26> Subjective Brandon Gomez NP rendered care for this patient independently, reviewed the findings and plan as documented in the note above. I did not physically speak with or examine the patient on this date. Objective - Vital Signs Vital signs: Vital Signs Temp 98.3 F 10/28/20 07:28 Pulse 100 10/28/20 07:28 Resp 16 10/28/20 07:28 BP 116/62 10/28/20 07:28 Pulse Ox 97 10/28/20 07:28 Intake & Output 10/27/20 10/28/20 10/28/20 18:59 06:59 18:59 Intake Total 1451 2650 400 Output Total 45 Balance 1406 2650 400 Weight 75.6 kg Intake: IV 1451 Intake, IV Titration 2050 Amount Lactated Ringers 1,000 ml 1000 @ 100 mls/hr IV .Q10H [facility] Rx#:[id number] Sodium Chloride 0.9% 1, 1000 000 ml @ 999 mls/hr IV . Q1H1M [facility] Rx#:[id number] ceFAZolin 2 gm In Sodium 50 Chloride 0.9% 50 ml @ 100 mls/hr IVPB Q8H [facility] Rx#: [id number] Oral 600 400 Output: Estimated Blood Loss 45 Other: # Voids 0 3 - Labs CBC & Chem 7: 10/28/20 06:19 Labs: Abnormal Lab Results - Last 24 Hours (Table) 10/27/20 10/28/20 Range/Units 19:13 06:19 WBC 11.79 H (4.50-10.00) X 10*3/uL Hgb 11.7 L (12.0-15.0) g/dL Hct 35.8 L (37.2-46.3) % Immature Gran # 0.06 H (0.00-0.04) X 10*3/uL Neutrophils # 9.72 H (1.80-7.70) X 10*3/uL Eosinophils # 0 L (0.04-0.35) X 10*3/uL POC Glucose (mg/dL) 177 H (75-99) mg/dL
--- NOTE | 2020-10-28 10:05 | P.DS ---
Providers Date of admission: 10/27/2020 Expected date of discharge: 10/28/20 Attending physician: Noé Ruelas Consults: 10/27/20 14:53 Consult Physician Routine Consulting Provider: Deborah Santiago Consult Reason/Comments: Medical management Do you want consulting provider notified?: Yes Primary care physician: Lauren Quinonez MD Hospital Course: Date of admission: 10/27/2020 Date of discharge: 10/28/2020 Admission diagnosis: Right knee osteoarthritis Discharge diagnosis: Same Attending physician: Dr. Ruelas Surgical procedures: Right total knee arthroplasty Brief history: Patient is a 70-year-old female with a history of with progressive primary right knee osteoarthritis. At this point patient has failed conservative treatment measures and has opted to proceed with a elective right total knee arthroplasty. Hospital course: Details of patient's surgery can be found in operative report. Patient tolerated the procedure well and was subsequently transported to orthopedic floor. Patient's orthopeidc and medical care was provided daily. Patient had daily laboratory tests performed for evaluation of overall blood counts. Patient had daily physical therapy to include strengthening range of motion as well as education with walker ambulation. Patient was treated with Lovenox for their postoperative DVT prophylaxis during their inpatient stay. Patient was noted to have a relatively uneventful postoperative course. Patient reported satisfactory pain control with oral pain medications by postoperative day 1. Patient showed satisfactory progress with physical therapy. Patient moved steadily through the program and had no difficulty meeting the goals by postoperative day 1. Given patient's otherwise satisfactory course and having met physical therapy goals, plan is to discharge patient home on postoperative day 1. Discharge condition/disposition: Patient will be discharged home in stable condition. Discharge medications: Instructions are given on resumption of patient's normal daily medications per primary care recommendation, in addition patient will be prescribed Lyrica 75 mg twice a day for first 7 days, then 75 mg daily 7 days; Colace. Resume home medications including Plavix for DVT prophylaxis Discharge instructions: 1. Wound care and infection precautions, keep incision dry and covered while showering, no lotions, creams, moisturizers. No soaking, tubs, pools, hottubs. Do not scrub over the incision. 2. Weight-bear as tolerated with walker / cane until follow-up. 3. Ice and elevate when necessary. Do not exceed 20 minutes per hour with ice pack. 4. Utilize compression sleeve until seen at first follow up appointment. 5. Visiting nursing care. 6. Home physical therapy including home CPM. 7. Pain meds and anticoagulants per prescription. 8. Pain medication has potential to cause constipation. Increase oral fluid and fiber intake. Contact primary care provider if you have not had a bowel movement within 48 hours after discharge 9. No anti-inflammatory medication until discussed at first post operative visit, this including Motrin, Aleve, Mobic, Diclofenac. 10. Follow up in office at 2 weeks postop with Sherman Huertas PA-C / Dominic Bliss PA-C 11. Follow up with your primary care doctor 7-10 days after discharge. 12. Contact [facility] with any questions, . Please keep silver foam dressing on for first 7-10 days after surgery. While showering, cover dressing in saran wrap. Assessment: Right knee osteoarthritis Procedures: Right total knee arthroplasty Patient Condition at Discharge: Good Plan - Discharge Summary Discharge Rx Participant: No New Discharge Prescriptions: New Pregabalin [Lyrica] 75 mg PO BID #21 cap Docusate [Colace] 100 mg PO DAILY #30 capsule No Action amLODIPine BESYLATE [Norvasc] 5 mg PO QAM Venlafaxine HCl [Effexor XR] 150 mg PO QAM Cholecalciferol [Vitamin D3 (25 Mcg = 1000 Iu)] 2,000 unit PO DAILY Aspirin 81 mg PO DAILY chew Clopidogrel [Plavix] 75 mg PO QAM Alirocumab [Praluent Pen] 75 mg SQ Q14D Magnesium Oxide [Hollis] 500 mg PO DAILY Moringa 1 cap PO DAILY Ibuprofen [Advil] 200 mg PO Q6H PRN PRN Reason: Pain Covid-19 Vacc,Mrna(Moderna)/Pf [Moderna Covid-19 Vaccine (Eua)] 2 dose IM ONCE Discharge Medication List Cholecalciferol [Vitamin D3 (25 Mcg = 1000 Iu)] 2,000 unit PO DAILY 07/20/16 [History] Venlafaxine HCl [Effexor XR] 150 mg PO QAM 07/20/16 [History] amLODIPine BESYLATE [Norvasc] 5 mg PO QAM 07/20/16 [History] Aspirin 81 mg PO DAILY chew 03/02/17 [Rx] Alirocumab [Praluent Pen] 75 mg SQ Q14D 06/21/17 [History] Clopidogrel [Plavix] 75 mg PO QAM 06/21/17 [History] Ibuprofen [Advil] 200 mg PO Q6H PRN 07/05/18 [History] Magnesium Oxide [Hollis] 500 mg PO DAILY 07/05/18 [History] Moringa 1 cap PO DAILY 07/05/18 [History] Covid-19 Vacc,Mrna(Moderna)/Pf [Moderna Covid-19 Vaccine (Eua)] 2 dose IM ONCE 0 10/23/20 [History] Docusate [Colace] 100 mg PO DAILY #30 capsule 10/28/20 [Rx] Pregabalin [Lyrica] 75 mg PO BID #21 cap 10/28/20 [Rx] Follow up Appointment(s)/Referral(s): Wilton Huertas PAC [PHYSICIAN MANAGER OF PRODUCTION] - 2 Weeks Patient Instructions/Handouts: Knee Replacement (GEN) Activity/Diet/Wound Care/Special Instructions: Orthopedic Discharge Instructions: 1. Wound care and infection precautions, keep incision dry and covered while showering, no lotions, creams, moisturizers. No soaking, pools, hot tubs. Do not scrub over incision. 2. Weight-bear as tolerated with walker / cane until follow-up. 3. Ice and elevate when necessary. Do not exceed 20 minutes per hour with ice pack. 4. Utilize compression sleeve until seen at first follow up appointment. 5. Pain meds and anticoagulants per prescription. 6. Pain medication has potential to cause constipation. Increase oral fluid and fiber intake. Contact primary care provider if you have not had a bowel movement within 48 hours after discharge. 7. No anti-inflammatory medication until discussed at first post operative visit, this including Motrin, Aleve, Mobic, Diclofenac. 8. Follow up in office at 2 weeks postop with Sherman Huertas PA-C / Dominic Bliss PA-C 9. Follow up with your primary care doctor 7-10 days after discharge. 10. Contact [facility] with any questions, . Please keep silver foam dressing on for first 7-10 days. While showering, cover dressing with Saran wrap Discharge Disposition: HOME WITH HOME HEALTH SERVICES
[2020-10-28 10:10] LABS: Basophils # (A) 0.01 X 10*3/uL (0.00-0.10); Basophils % (A) 0.1 %; Eosinophils # (A) 0 X 10*3/uL (0.04-0.35); Eosinophils % (A) 0 %; HCT 35.8 % (37.2-46.3); HGB 11.7 g/dL (12.0-15.0); Lymphocytes # (A) 1.06 X 10*3/uL (0.90-5.00); MCH 27.7 pg (27.0-32.0); MCHC 32.7 g/dL (32.0-37.0); MCV 84.6 fL (80.0-97.0); Mean Platelet Volume 10.8 fL (9.5-12.2); Monocytes # (A) 0.94 X 10*3/uL (0.20-1.00); Neutrophils # (A) 9.72 X 10*3/uL (1.80-7.70); Neutrophils % (A) 82.4 %; Platelet Count 211 X 10*3/uL (140-440); RBC 4.23 X 10*6/uL (4.10-5.20); RDW 13.5 % (11.5-14.5); WBC 11.79 X 10*3/uL (4.50-10.00)
--- NOTE | 2020-10-28 10:12 | P.PN ---
Subjective Progress Note Date: 10/28/20 Principal diagnosis: Right knee osteoarthritis Patient was seen at bedside this morning she was sitting up in chair with legs elevated. Patient says physical therapy went well this morning. She says she walked in the hallway and went up-and-down a couple steps. Patient says she is ready to go home and does live with at home. Patient says she is feeling well and minimal pain in knee. Patient says she has not had a bowel movement yet, however, she has been passing gas. Patient denies chest pain, fever, shortness breath, nausea, vomiting, change numbness/tingling, loss of bowel/bladder control. Objective - Vital Signs Vital signs: Vital Signs Temp 98.3 F 10/28/20 07:28 Pulse 100 10/28/20 07:28 Resp 16 10/28/20 07:28 BP 116/62 10/28/20 07:28 Pulse Ox 97 10/28/20 07:28 Intake & Output 10/27/20 10/28/20 10/28/20 18:59 06:59 18:59 Intake Total 1451 2650 400 Output Total 45 Balance 1406 2650 400 Weight 75.6 kg Intake: IV 1451 Intake, IV Titration 2050 Amount Lactated Ringers 1,000 ml 1000 @ 100 mls/hr IV .Q10H [facility] Rx#:[id number] Sodium Chloride 0.9% 1, 1000 000 ml @ 999 mls/hr IV . Q1H1M ONE Rx#:[id number] ceFAZolin 2 gm In Sodium 50 Chloride 0.9% 50 ml @ 100 mls/hr IVPB Q8H [facility] Rx#: [id number] Oral 600 400 Output: Estimated Blood Loss 45 Other: # Voids 0 3 - Exam Right knee: Incision is clean, dry, and intact. The silver foam tape is in good condition. There is minimal soft tissue swelling and ecchymosis surrounding the medial and lateral aspects of the incision. Calf is soft, no tenderness with palpation. Plantar flexion, dorsiflexion, EHL, FHL are intact. Sensory exam to light touch throughout the extremity is intact, dorsal pedis pulses 2+. - Labs Labs: Abnormal Lab Results - Last 24 Hours (Table) 10/27/20 Range/Units 19:13 POC Glucose (mg/dL) 177 H (75-99) mg/dL Assessment and Plan Assessment: Right knee osteoarthritis Plan: 1. Right knee osteoarthritis - right total knee arthroplasty performed yesterday, 10/27/2020. Patient doing well this morning, plan for discharge today 2. Pain management - stable at this time. Patient going home with Lyrica 75 mg twice a day 3. DVT prophylaxis - patient on Plavix 4. GI prophylaxis - Senna 5. Encourage incentive spirometer use 6. PT/OT- weightbearing as tolerated walker for assistance 7. Discharge planning- plan for discharge today 10/28/2020, to home Time with Patient: Less than 30
[2020-10-28] MEDS: HYDROcodone/APAP 5-325MG 1 EACH TAB PO PRN (11:00)
== END 2020-10-28 12:39 | disposition home health service (06) ==
LOC: OR 11:23 → 4SSUR 15:14 → OR 10-28 12:39
PROVIDERS: ATTEND Orthopaedic Surgery
DX: M17.11 Unilateral primary osteoarthritis, right knee (principal); Z90.89 Acquired absence of other organs; Z96.652 Presence of left artificial knee joint; Z86.73 Personal history of transient ischemic attack (TIA), and cerebral infarction without residual deficits; I10 Essential (primary) hypertension; E78.5 Hyperlipidemia, unspecified; F32.9 Major depressive disorder, single episode, unspecified; F41.9 Anxiety disorder, unspecified; Z79.02 Long term (current) use of antithrombotics/antiplatelets; Z79.82 Long term (current) use of aspirin; Z79.899 Other long term (current) drug therapy; Z88.6 Allergy status to analgesic agent; Z88.8 Allergy status to other drugs, medicaments and biological substances
CPT/HCPCS: 97161; 64999; 64448; 76942; 85025; 88300; 73560; 27447; C1776; C1713 ×2; J2250; J1100; J0690 ×3; J2405; J1650; J3010; J2795; J2370; J2704; J1170

== ENCOUNTER → 2021-06-18 | Outpatient (CLI) | payer MEDICARE, OTHER ==
--- NOTE | 2021-06-22 09:11 | MM ---
Reason for exam: screening (asymptomatic). Last mammogram was performed 2 years ago. History: Patient is postmenopausal. Family history of breast cancer in maternal cousin and breast cancer in mother. Benign ultrasound-guided core biopsy of the right breast, November 08, 2001. Benign ultrasound-guided core biopsy of the right breast, November 08, 2001. 2 core biopsies of the right breast. Excisional biopsy of the left breast. Physical Findings: A clinical breast exam by your physician is recommended on an annual basis and results should be correlated with mammographic findings. MG 3D Screening Mammo W/Cad Bilateral CC and MLO view(s) were taken. Prior study comparison: June 28, 2019, bilateral MG 3d screening mammo w/cad. March 03, 2018, bilateral MG 3d screening mammo w/cad. The breast tissue is heterogeneously dense. This may lower the sensitivity of mammography. Previous mammotome biopsy in the right breast. Enlarging elongated nodularity posterior 9 o'clock right breast. ASSESSMENT: Incomplete: need additional imaging evaluation, BI-RAD 0 RECOMMENDATION: Special view mammogram of the right breast. (3D) If lesion persists on supplemental views, image directed ultrasound is recommended. [facility] will attempt to contact patient to return for supplemental views and ultrasound if indicated.
== END | disposition home or self-care (01) ==
LOC: RADMAMWWP 09:58
PROVIDERS: ATTEND Family Medicine
DX: Z12.31 Encounter for screening mammogram for malignant neoplasm of breast (principal)
CPT/HCPCS: 77063; 77067

== ENCOUNTER → 2021-06-24 | Outpatient (CLI) | payer MEDICARE, OTHER ==
--- NOTE | 2021-06-24 12:35 | MM ---
Reason for exam: additional evaluation requested from abnormal screening. Last mammogram was performed less than 1 month ago. History: Patient is postmenopausal. Family history of breast cancer in maternal cousin and breast cancer in mother. Benign ultrasound-guided core biopsy of the right breast, November 08, 2001. Benign ultrasound-guided core biopsy of the right breast, November 08, 2001. 2 core biopsies of the right breast. Excisional biopsy of the left breast. Physical Findings: A clinical breast exam by your physician is recommended on an annual basis and results should be correlated with mammographic findings. MG 3D Work Up W/Cad RT Spot compression CC, spot compression MLO, and ML view(s) were taken of the right breast. Prior study comparison: June 18, 2021, bilateral MG 3d screening mammo w/cad. June 28, 2019, bilateral MG 3d screening mammo w/cad. The breast tissue is heterogeneously dense. This may lower the sensitivity of mammography. There is no discrete abnormality including area of concern. Summation density right breast. These results were verbally communicated with the patient and result sheet given to the patient on 06/24/21. ASSESSMENT: Benign, BI-RAD 2 RECOMMENDATION: Return to routine screening mammogram schedule for both breasts.
== END | disposition home or self-care (01) ==
LOC: RADMAMWWP 10:21
PROVIDERS: ATTEND Family Medicine
DX: R92.8 Other abnormal and inconclusive findings on diagnostic imaging of breast (principal)
CPT/HCPCS: 77065; G0279; 77061

== ENCOUNTER → 2022-08-04 | Outpatient (CLI) | payer MEDICARE, OTHER ==
--- NOTE | 2022-08-05 19:28 | BD ---
EXAMINATION TYPE: Axial Bone Density DATE OF EXAM: 08/04/2022 CLINICAL HISTORY: 72 years old Female. ICD-10 CODE: Z78.0 Asymptomatic menopausal state Height: 63 in Weight: 162 lbs FRAX RISK QUESTIONS: Secondary Osteoporosis: 3. Menopause before 45: age 57 RISK FACTORS HISTORY OF: Active: yes Diet low in dairy products/other sources of calcium: yes Postmenopausal woman: age 57 MEDICATIONS: Additional Medications: vit d, cholesterol meds, stroke medication, EXAM MEASUREMENTS: Bone mineral densitometry was performed using the [employer] System. Bone mineral density as measured about the Lumbar spine is: ----- L1-L4(G/cm2): 1.067 T Score Values are as follows: ----- L1: -2.0 ----- L2: -1.3 ----- L3: -1.0 ----- L4: 0.1 ----- L1-L4: -0.9 Z Score Values are as follows: ----- L1: -0.6 ----- L2: 0.1 ----- L3: 0.4 ----- L4: 1.5 ----- L1-L4: 0.5 Bone mineral density has: Decreased -8.5% since study of: 05/20/2003 Bone mineral density about the R hip (g/cm2): 0.944 Bone mineral density about the L hip (g/cm2): 0.885 T Score values are as follows: -----R Neck: -1.3 -----L Neck: -1.8 -----R Total: -1.0 -----L Total: -0.5 Z Score values are as follows: -----R Neck: 0.2 -----L Neck: -0.3 -----R Total: 0.8 -----L Total: 0.3 Bone mineral density has: Decreased -20.2% since study of: 05/20/2003 FRAX%s: The graph provided illustrates a 10.9% chance for a major osteoporotic fx and a 1.9% chance f or the hips probability for fx in 10 years time. IMPRESSION: Osteopenia (T Score between -2.5 and -1). There is slightly increased risk of fracture and the patient may be considered for treatment. Re-Screen 2-5 years. NOTE: T-SCORE=SD OF THE YOUNG ADULT MEAN.
--- NOTE | 2022-08-05 19:51 | MM ---
Reason for Exam: Screening (asymptomatic). Last mammogram was performed 1 year(s) and 1 month(s) ago. Patient History: Menarche at age 18. First Full-Term at age 29. Postmenopausal. Patient has history of breast feeding. Core Biopsy on the Right side. Core Biopsy on the Right side. Excisional Biopsy on the Left side. 11/08/2001, Benign Ultrasound-Guided Core Biopsy on the right side. 11/08/2001, Benign Ultrasound-Guided Core Biopsy on the right side. Maternal cousin had breast cancer. Mother had breast cancer. Risk Values: Rosa Maria 5 year model risk: 4.6%. NCI Lifetime model risk: 13.1%. Prior Study Comparison: 06/28/2019 Bilateral Screening Mammogram, [facility]. 06/18/2021 Bilateral Screening Mammogram, [facility]. 06/24/2021 Right Diagnostic Mammogram, [facility]. Tissue Density: There are scattered fibroglandular densities. Findings: Analyzed By CAD. Chronic nodularity on both sides. There is no suspicious group of microcalcifications or new suspicious mass in either breast. Overall Assessment: Benign, BI-RAD 2 Management: Screening Mammogram of both breasts in 1 year. 1. Note that per NCCN guidelines, a five-year risk assessment greater than 1.67% is used to assess eligibility for a risk reducing agent. 2. Patient should continue monthly self breast exams. 3. This exam should not preclude additional follow-up of suspicious palpable abnormalities. Electronically signed and approved by: Aliza Kunz M.D. Radiologist
--- NOTE | 2022-08-06 09:33 | CA ---
Transthoracic Echo Report Name: Neva Zambrano Age: 72 Gender: F : 1950 Exam Date: 08/04/2022 14:11 Exam Location: [facility] Ht (in): 63 Wt (lb): 162 Ordering Physician: Toney Winn MD Attending/Referring Phys: [id number], [place] Hearing Care Professional Benson Greenberg, [facility] Procedure CPT: Indications: I34.0 nonrheumatic mitral insufficiency Cardiac Hx: Technical Quality: Fair Contrast 1: Total Dose (mL): Contrast 2: Total Dose (mL): MEASUREMENTS (Male / Female) Normal Values 2D ECHO LV Diastolic Diameter PLAX 3.5 cm 4.2 - 5.9 / 3.9 - 5.3 cm LV Systolic Diameter PLAX 1.9 cm LV Fractional Shortening PLAX 44.5 % IVS Diastolic Thickness 1.1 cm 0.6 - 1.0 / 0.6 - 0.9 cm IVS Systolic Thickness 1.7 cm LVPW Diastolic Thickness 1.3 cm 0.6 - 1.0 / 0.6 - 0.9 cm LVPW Systolic Thickness 1.5 cm LV Relative Wall Thickness 0.7 RV Internal Dim ED PLAX 3.2 cm LVOT Diameter 2.0 cm LA Systolic Diameter LX 3.5 cm 3.0 - 4.0 / 2.7 - 3.8 cm LV Diastolic Volume MOD BP 84.3 cm??? 67 - 155 / 56 - 104 cm??? LV Systolic Volume MOD BP 28.7 cm??? 22 - 58 / 19 - 49 cm??? LV Ejection Fraction MOD BP 65.9 % >= 55 % LV Stroke Volume MOD BP 55.6 cm??? LV Diastolic Volume MOD 4C 77.8 cm??? LV Systolic Volume MOD 4C 21.3 cm??? LV Ejection Fraction MOD 4C 72.6 % LV Stroke Volume MOD 4C 56.5 cm??? LV Diastolic Length 4C 8.0 cm LV Systolic Length 4C 5.8 cm LV Diastolic Volume MOD 2C 80.3 cm??? LV Systolic Volume MOD 2C 39.2 cm??? LV Ejection Fraction MOD 2C 51.1 % LV Stroke Volume MOD 2C 41.0 cm??? LV Diastolic Length 2C 7.0 cm LV Systolic Length 2C 5.7 cm Ascending Aorta Diameter 2.5 cm M-MODE Aortic Root Diameter MM 2.7 cm LA Systolic Diameter MM 4.1 cm LA Ao Ratio MM 1.5 AV Cusp Separation MM 1.5 cm DOPPLER AV Peak Velocity 161.0 cm/s AV Peak Gradient 10.4 mmHg MV Peak Velocity 134.3 cm/s MV Peak Gradient 7.2 mmHg MV Mean Velocity 81.5 cm/s MV Mean Gradient 2.9 mmHg MV Velocity Time Integral 31.6 cm MV Deceleration [place] 329.7 cm/s??? MR Peak Velocity 368.1 cm/s MR Peak Gradient 54.2 mmHg Mitral E Point Velocity 69.1 cm/s Mitral A Point Velocity 121.5 cm/s Mitral E to A Ratio 0.6 MV Deceleration Time 209.5 ms MV E' Velocity 5.1 cm/s Mitral E to MV E' Ratio 13.5 TR Peak Velocity 232.8 cm/s TR Peak Gradient 21.7 mmHg Right Ventricular Systolic Press 29.7 mmHg PV Peak Velocity 128.4 cm/s PV Peak Gradient 6.6 mmHg FINDINGS Left Ventricle Left ventricular ejection fraction is estimated at 55-60 %. Borderline left ventricular hypertrophy. Grade 1 diastolic dysfunction. Normal basal systolic function. Right Ventricle Normal right ventricular size. RVSP- 30 mm Hg Right Atrium Normal right atrial size. Left Atrium Normal left atrial size. Mitral Valve Mitral valve thickened. [id number] mitral regurgitation. Aortic Valve Trileaflet aortic valve. No aortic valve stenosis or regurgitation. Tricuspid Valve Mild tricuspid regurgitation. Pulmonic Valve Mild pulmonic regurgitation. Pericardium Normal pericardium. No pericardial effusion. Aorta Normal size aortic root and proximal ascending aorta. CONCLUSIONS Normal LV systolic function. Borderline concentric LVH [id number] mitral regurgitation Previewed by: Dr. Oziel Briggs MD (Electronically Signed) Final Date: 06 August 2022 09:32
== END | disposition home or self-care (01) ==
LOC: RADBDWWP 12:56
PROVIDERS: ATTEND Family Medicine
DX: Z12.39 Encounter for other screening for malignant neoplasm of breast (principal); M85.89 Other specified disorders of bone density and structure, multiple sites; I34.0 Nonrheumatic mitral (valve) insufficiency; I51.7 Cardiomegaly; Z80.3 Family history of malignant neoplasm of breast; Z78.0 Asymptomatic menopausal state; Z98.890 Other specified postprocedural states
CPT/HCPCS: 77063; 77067; 77080; 93306

== ENCOUNTER 2022-10-28 12:50 | Emergency (ER) | payer MEDICARE, OTHER ==
[2022-10-28] MEDS ORDERED: DIPH,PERTUS(ACELL)TETVAC-LF 0.5 ML VIAL IM ONE (14:23)
[2022-10-28 14:24] LABS: Glucose,Whole Blood 149 mg/dL (70-110)
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
--- NOTE | 2022-10-28 14:48 | XR ---
EXAMINATION TYPE: XR pelvis AP view DATE OF EXAM: 10/28/2022 2:31 PM INDICATION: Patient age:Female; 72 years old; Reason for study: fall injury; PHH. COMPARISON: None TECHNIQUE: The pelvis was examined in a single projection. FINDINGS: There is no evidence of fracture or dislocation. There is no soft tissue abnormality. Righ t-sided pelvic phlebolith. Multilevel degenerative changes of the lower spine. IMPRESSION: No acute osseous pathology.
--- NOTE | 2022-10-28 14:49 | XR ---
EXAMINATION TYPE: XR chest 1V portable DATE OF EXAM: 10/28/2022 2:31 PM COMPARISON: Chest radiographs from 03/01/2017 TECHNIQUE: XR chest 1V portable Portable AP radiograph of the chest. CLINICAL INDICATION:Female, 72 years old with history of fall injury; FINDINGS: Lungs/Pleura: There is no evidence of pleural effusion, focal consolidation, or pneumothorax. Chroni c elevation of the right hemidiaphragm. Pulmonary vascularity: Unremarkable. Heart/mediastinum: Cardiomediastinal silhouette is unremarkable. Musculoskeletal: No acute osseous pathology. IMPRESSION: No acute cardiopulmonary disease/process.
[2022-10-28 14:52] LABS: Basophils % (A) 0 %; Eosinophils # (A) 0.1 k/uL (0-0.7); Eosinophils % (A) 1 %; HCT 40.3 % (34.0-46.0); HGB 12.8 gm/dL (11.4-16.0); Lymphocytes # (A) 1.7 k/uL (1.0-4.8); Lymphocytes % (A) 15 %; MCH 26.6 pg (25.0-35.0); MCHC 31.7 g/dL (31.0-37.0); MCV 84.1 fL (80.0-100.0); Mean Platelet Volume 7.9; Monocytes # (A) 0.4 k/uL (0-1.0); Monocytes % (A) 4 %; Neutrophils # (A) 9.1 k/uL (1.3-7.7); Neutrophils % (A) 80 %; Platelet Count 226 k/uL (150-450); RBC 4.79 m/uL (3.80-5.40); RDW 13.5 % (11.5-15.5); WBC 11.5 k/uL (3.8-10.6)
[2022-10-28 15:18] LABS: Partial Thromboplastin Time 23.3 sec (22.0-30.0); Prothrombin Time 10.5 sec (9.0-12.0)
[2022-10-28 15:25] VITALS: BP 141/72; PULSE 84; RESP 18; TEMP 98.1
[2022-10-28 15:37] LABS: ALT 35 U/L (4-34); AST 35 U/L (14-36); African American GFR (CKD) >90 (>60 ml/min/1.73 sqM); Albumin 4.4 g/dL (3.5-5.0); Alcohol <10 mg/dL; Alkaline Phosphatase 129 U/L (38-126); Anion Gap 12 mmol/L; Blood Urea Nitrogen 21 mg/dL (7-17); Carbon Dioxide 23 mmol/L (22-30); Chloride 103 mmol/L (98-107); Glucose 158 mg/dL (74-99); Non-African American GFR(CKD) 88 (>60 ml/min/1.73 sqM); Potassium 3.8 mmol/L (3.5-5.1); Sodium 138 mmol/L (137-145); Total Bilirubin 0.4 mg/dL (0.2-1.3); Total Protein 7.1 g/dL (6.3-8.2)
== END 2022-10-28 15:10 | disposition other institution (70) ==
LOC: EC 12:50
DX: S06.5X0A Traumatic subdural hemorrhage without loss of consciousness, initial encounter (principal); I10 Essential (primary) hypertension; M19.90 Unspecified osteoarthritis, unspecified site; Z86.73 Personal history of transient ischemic attack (TIA), and cerebral infarction without residual deficits; F41.9 Anxiety disorder, unspecified; F32.A Depression, unspecified; Z88.8 Allergy status to other drugs, medicaments and biological substances; Z79.899 Other long term (current) drug therapy; V18.0XXA Pedal cycle driver injured in noncollision transport accident in nontraffic accident, initial encounter
CPT/HCPCS: 36415; 93005; 86900; 86901; 80053; 83605; 84484; 85025; 85610; 85730; 86850; 72170; 71045; 72125; 70486; 70450; 99291; 36430; G0480; P9073; 80320

== ENCOUNTER → 2023-08-08 | Outpatient (CLI) | payer MEDICARE, OTHER ==
--- NOTE | 2023-08-10 09:25 | MM ---
Reason for Exam: Screening (asymptomatic). Last screening mammogram was performed 12 month(s) ago. Patient History: Menarche at age 18. First Full-Term at age 29. Postmenopausal. Patient has history of breast feeding. Core Biopsy on the Right side. Core Biopsy on the Right side. Excisional Biopsy on the Left side. 11/08/2001, Benign Ultrasound-Guided Core Biopsy on the right side. 11/08/2001, Benign Ultrasound-Guided Core Biopsy on the right side. Maternal cousin had breast cancer. Mother had breast cancer. Risk Values: Rosa Maria 5 year model risk: 4.7%. NCI Lifetime model risk: 12.5%. Prior Study Comparison: 06/18/2021 Bilateral Screening Mammogram, [facility]. 06/24/2021 Right Diagnostic Mammogram, [facility]. 08/04/2022 Bilateral MG 3D screening mammo w/cad, [facility]. Tissue Density: The breasts are heterogeneously dense, which may obscure small masses. Findings: Analyzed By CAD. There is no suspicious group of microcalcifications or new suspicious mass in either breast.Chronic nodularity in the right breast. There are benign appearing calcifications. There is a loosely grouped area of calcification in the upper margin of the left breast. Overall Assessment: Incomplete: need additional imaging evaluation, BI-RAD 0 Management: Diagnostic Mammogram of the left breast. . Patient should continue monthly self-breast exams. A clinical breast exam by your physician is recommended on an annual basis. This exam should not preclude additional follow-up of suspicious palpable abnormalities. Note on Rosa Maria scores and lifetime risk: 1. A Rosa Maria score greater than 3% is considered moderate risk. If this is the case, consider specialist referral to assess eligibility for a risk reducing agent. 2. If overall lifetime risk for the development of breast cancer is 20% or higher, the patient may qualify for future screening with alternating mammogram and breast MRI. Electronically signed and approved by: Brandon Hansen M.D. Radiologis
== END | disposition home or self-care (01) ==
LOC: RADMAMWWP 11:22
PROVIDERS: ATTEND Family Medicine
DX: Z12.31 Encounter for screening mammogram for malignant neoplasm of breast (principal); Z78.0 Asymptomatic menopausal state; Z80.3 Family history of malignant neoplasm of breast
CPT/HCPCS: 77063; 77067

== ENCOUNTER → 2023-08-12 | Outpatient (CLI) | payer MEDICARE, OTHER ==
--- NOTE | 2023-08-12 10:35 | MM ---
Reason for Exam: Additional evaluation requested from abnormal screening. Last screening mammogram was performed less than 1 month ago. Patient History: Menarche at age 18. First Full-Term at age 29. Postmenopausal. Patient has history of breast feeding. Core Biopsy on the Right side. Core Biopsy on the Right side. Excisional Biopsy on the Left side. 11/08/2001, Benign Ultrasound-Guided Core Biopsy on the right side. 11/08/2001, Benign Ultrasound-Guided Core Biopsy on the right side. Maternal cousin had breast cancer. Mother had breast cancer. Risk Values: Rosa Maria 5 year model risk: 4.7%. NCI Lifetime model risk: 12.5%. Prior Study Comparison: 06/24/2021 Right Diagnostic Mammogram, [facility]. 08/04/2022 Bilateral MG 3D screening mammo w/cad, [facility]. 08/08/2023 Bilateral MG 3D screening mammo w/cad, [facility]. Tissue Density: Left: There are scattered areas of fibroglandular density. Findings: Analyzed By CAD. Consultations left breast upper aspect in MLO view approximately 5.6 cm from the nipple anterior depth may been present back to 2021. Short-term follow-up in 6 months recommended for stability. Punctate grouped consultations in the left breast upper aspect in MLO view approximately 5.6 cm from the nipple anterior depth may have been present back to 2021. Short-term follow-up in 6 months recommended for stability. Overall Assessment: Probably benign, BI-RAD 3 Management: Diagnostic Mammogram of the left breast in 6 months. Results were given to the patient verbally at the time of exam. Patient should continue monthly self-breast exams. A clinical breast exam by your physician is recommended on an annual basis. This exam should not preclude additional follow-up of suspicious palpable abnormalities. Note on Rosa Maria scores and lifetime risk: 1. A Rosa Maria score greater than 3% is considered moderate risk. If this is the case, consider specialist referral to assess eligibility for a risk reducing agent. 2. If overall lifetime risk for the development of breast cancer is 20% or higher, the patient may qualify for future screening with alternating mammogram and breast MRI. Electronically signed and approved by: Shayan Wu DO
== END | disposition home or self-care (01) ==
LOC: RADMAMWWP 10:06
PROVIDERS: ATTEND Family Medicine
DX: R92.322 Mammographic fibroglandular density, left breast (principal); Z78.0 Asymptomatic menopausal state; Z80.3 Family history of malignant neoplasm of breast
CPT/HCPCS: 77065; G0279; 77061

== ENCOUNTER → 2024-08-13 | Outpatient (CLI) | payer MEDICARE, OTHER ==
--- NOTE | 2024-08-13 11:30 | MM ---
Reason for Exam: Follow-up at short interval from prior study. Last mammogram was performed 1 year(s) and 1 month(s) ago. Patient History: Menarche at age 18. First Full-Term at age 29. Postmenopausal. Patient has history of breast feeding. Core Biopsy on the Right side. Core Biopsy on the Right side. Excisional Biopsy on the Left side. 11/08/2001, Benign Ultrasound-Guided Core Biopsy on the right side. 11/08/2001, Benign Ultrasound-Guided Core Biopsy on the right side. Maternal cousin had breast cancer. Mother had breast cancer. Risk Values: Rosa Maria 5 year model risk: 4.7%. NCI Lifetime model risk: 11.9%. Prior Study Comparison: 06/18/2021 Bilateral Screening Mammogram, [facility]. 06/24/2021 Right Diagnostic Mammogram, [facility]. 08/04/2022 Bilateral MG 3D screening mammo w/cad, [facility]. 08/08/2023 Bilateral MG 3D screening mammo w/cad, [facility]. 08/12/2023 Left MG 3D work up w/cad LT, [facility]. Tissue Density: The breasts are heterogeneously dense, which may obscure small masses. Findings: Analyzed By CAD. Stable calcifications bilaterally. No new suspicious masses, calcifications or distortions. Overall Assessment: Benign, BI-RAD 2 Management: Screening Mammogram of both breasts in 1 year. Results were given to the patient verbally at the time of exam. Patient should continue monthly self-breast exams. A clinical breast exam by your physician is recommended on an annual basis. This exam should not preclude additional follow-up of suspicious palpable abnormalities. Note on Rosa Maria scores and lifetime risk: 1. A Rosa Maria score greater than 3% is considered moderate risk. If this is the case, consider specialist referral to assess eligibility for a risk reducing agent. 2. If overall lifetime risk for the development of breast cancer is 20% or higher, the patient may qualify for future screening with alternating mammogram and breast MRI. [facility], , 08/13/2024 11:24 AM. Electronically signed and approved by: Shayan Wu DO
== END | disposition home or self-care (01) ==
LOC: RADMAMWWP 11:00
PROVIDERS: ATTEND Family Medicine
DX: R92.8 Other abnormal and inconclusive findings on diagnostic imaging of breast (principal); R92.333 Mammographic heterogeneous density, bilateral breasts; R92.1 Mammographic calcification found on diagnostic imaging of breast; Z78.0 Asymptomatic menopausal state; Z80.3 Family history of malignant neoplasm of breast
CPT/HCPCS: 77066; G0279; 77062